=== PATIENT | female | born 1965 | race Caucasian/White ===

== ENCOUNTER → 2018-07-15 10:43 | Outpatient (CLI) | payer BC, SELFPAY ==
--- NOTE | 2018-07-15 10:45 | MR_ITS ---
MR lumbar spine wo con, MR 3-d myelogram/MRCP HISTORY: PT states low back pain and RT leg numbness from knee down. ITS.REASON: LOW BACK PAIN, RADICULOPATHY LUMBOSACRAL REGION ORDERING PHYSICIAN: Marlena Das PATIENT AGE: 53 years Comparison: None TECHNIQUE: Standard multiplanar multiecho sequences are performed without contrast. 3-D MIP and myelographic images are also rendered and reviewed FINDINGS: There is a transitional segment at the lumbosacral junction which is labeled as S1. The spinal cord ends at the L1-L2 level. There is normal alignment. There are minimal bulging disc at L1-L2, L2-L3, and L3-L4 without impingement. There is mild facet and ligamentum flavum hypertrophy at L3-L4. L4-L5 shows mild bulging disc along with facet and ligamentum flavum hypertrophy with moderate right and mild left foraminal narrowing. L5-S1: Mild concentric bulging disc with mild facet and ligamentum flavum hypertrophy with [id number] bilateral foraminal narrowing. There is minimal anterolisthesis of L5 on S1 of 2 to 3 mm. No canal stenosis or disc herniation evident. There is a small right renal cyst anteriorly at 12 mm. IMPRESSION: 1. Transitional segment at the lumbosacral junction labeled as S1. Please correlate with lateral spine film if any intervention is contemplated 2. Mild bulging disc at multiple levels. There is facet ligamentum flavum hypertrophy with moderate right and mild left foraminal narrowing at L4-L5 and moderate bilateral foraminal narrowing at L5-S1. 3. No disc herniation or canal stenosis
== END ==
PROVIDERS: PCP Nurse Practitioner Family; Visit Provider Nurse Practitioner Family
DX: M54.17 Radiculopathy, lumbosacral region (principal)
CPT/HCPCS: 72148; 76376

== ENCOUNTER → 2018-08-15 14:38 | Outpatient (CLI) | payer BC, SELFPAY ==
--- NOTE | 2018-08-15 14:44 | US_ITS ---
US soft tissue head and neck CLINICAL INDICATION: ITS.REASON: PALPABLE AREA LOWER NECK ORDERING PHYSICIAN: Marlena Das PATIENT AGE: 53 years Comparison: None FINDINGS: The parotid and submandibular glands have an unremarkable appearance. No obvious adenopathy or abnormal fluid collection. No soft tissue masses demonstrated. The area of palpable abnormality may very well represent a prominent sternoclavicular joint. This could be confirmed with CT clinically warranted. IMPRESSION: Unremarkable ultrasound soft tissue neck. Palpable abnormality may correspond to sternoclavicular joint and could be confirmed with CT if clinically warranted
--- NOTE | 2018-08-15 14:44 | MM_ITS ---
MM Dig screening mamm BI w/CAD ORDERING PHYSICIAN : Marlena Das PATIENT AGE: 53 years GENDER: Female COMPARISON: July 2016, 2016, June 2015 bilateral mammogram INDICATION: ITS.REASON: SCREENING. No hormones currently. Stopped -control pills 10 weeks ago.. No new complaints.. Family history breast cancer,.: Maternal cousin with breast cancer premenopausal; and paternal cousin postmenopausal TECHNIQUE: Standard CC and MLO images were obtained. R2 CAD reviewed. FINDINGS: Moderate scattered residual fibroglandular elements throughout both breast . Moderate density breast Breast bilaterally. No suspicious nor dominant mass; no suspicious calcifications in either breast. No significant new areas of concern were compared to previous studies.. There is some stable subtle areas of minimal nodularity bilaterally not of concern. The. Bilateral follow-up in one year recommended . IMPRESSION: ... Stable bilateral mammogram with no significant new findings. Follow-up one year recommended BI-RADS Category: 2 Benign Finding(s) RECOMMENDED FOLLOW-UP: 1YR 1 YEAR FOLLOW-UP (A letter has been sent to the patient regarding results of the study.)
== END ==
PROVIDERS: PCP Nurse Practitioner Family; Visit Provider Nurse Practitioner Family
DX: Z12.31 Encounter for screening mammogram for malignant neoplasm of breast (principal); R22.1 Localized swelling, mass and lump, neck
CPT/HCPCS: 76536; 77067

== ENCOUNTER → 2018-11-28 13:46 | Outpatient (CLI) | payer BC, SELFPAY ==
--- NOTE | 2018-11-28 14:02 | XR_ITS ---
XR knee LT 3V HISTORY: ITS.REASON: LT KNEE PAIN ORDERING PHYSICIAN: Santy Segura PATIENT AGE: 53 years COMPARISON: Left knee 03/01/2017 FINDINGS: No fracture or dislocation. No lytic or blastic change. Normal mineralization. There is mild narrowing of joint space medially with prominent spurring the medial tibial spine. There is mild narrowing of patellofemoral space with minimal spurring of the superior border of the patella. There is no definite suprapatellar bursal effusion. There has been slight interval progression of medial joint space narrowing since the previous left knee February 2017. . IMPRESSION: Mild degenerative change of the knee primarily involving medial joint compartment
== END ==
PROVIDERS: PCP Nurse Practitioner Family; Visit Provider Orthopaedic Surgery Adult Reconstructive Orthopaedic Surgery
DX: M25.562 Pain in left knee (principal)
CPT/HCPCS: 73562

== ENCOUNTER 2019-01-21 15:00 | Outpatient (RCR) | payer BC, SELFPAY | END 2019-02-17 10:52 | disposition home or self-care (01) | LOC: PT.CARL 15:00 | PROVIDERS: Visit Provider Orthopaedic Surgery Adult Reconstructive Orthopaedic Surgery | DX: M17.12 Unilateral primary osteoarthritis, left knee (principal) | CPT/HCPCS: 97010; 97014; 97033; 97110; 97163; G0283 ==

== ENCOUNTER 2019-04-09 13:00 | Outpatient (RCR) | payer BC, SELFPAY | END 2019-04-23 09:55 | disposition home or self-care (01) | LOC: PT.CARL 13:00 | PROVIDERS: PCP Nurse Practitioner Family; Visit Provider Orthopaedic Surgery Adult Reconstructive Orthopaedic Surgery | DX: M17.12 Unilateral primary osteoarthritis, left knee (principal) | CPT/HCPCS: 97010; 97014; 97110; 97116; 97163; G0283 ==

== ENCOUNTER → 2019-05-19 08:59 | Outpatient (POV) | payer BC, SELFPAY | PROVIDERS: Visit Provider Dermatology | DX: Z00.00 Encounter for general adult medical examination without abnormal findings (principal) ==

== ENCOUNTER → 2019-09-08 14:55 | Outpatient (CLI) | payer BC, SELFPAY ==
--- NOTE | 2019-09-08 14:58 | MM_ITS ---
PROCEDURE: MM DIG SCREENING MAMM BI W/CAD CLINICAL INDICATION: SCREENING There is a history of breast cancer patient's maternal cousin and paternal cousin, 1 before menopause the other after menopause COMPARISON: [facility] DIG MAMM-SCREEN [facility] from 07/13/2016 [facility] DIG MAMM-SCREEN [facility] W/CAD from 07/15/2017 [facility] MM Dig screening mamm BI w/CAD from 08/15/2018 TECHNIQUE: Standard CC and MLO images and 3D Tomosinthisis was obtained. R2 CAD reviewed. FINDINGS: Minimal scattered fibroglandular densities are seen throughout both breasts. There is no suspicious lesion and no suspicious microcalcifications. Tomy images were reviewed. IMPRESSION: Fibrofatty parenchyma with no suspicious lesions seen BI-RAD Category: 1 Negative FOLLOW-UP: 1YR 1 Year Follow-up (A letter has been sent to the patient regarding results of the study.) Dictated by: Dr. Farrukh Lim MD 09/11/2019 09:[address] Farrukh Lim MD in [place] 09/11/2019 09:05
== END ==
PROVIDERS: PCP Nurse Practitioner Family; Visit Provider Nurse Practitioner Family
DX: Z12.31 Encounter for screening mammogram for malignant neoplasm of breast (principal)
CPT/HCPCS: 77063; 77067

== ENCOUNTER → 2020-11-11 15:03 | Outpatient (CLI) | payer BC, SELFPAY ==
--- NOTE | 2020-11-11 15:09 | MM_ITS ---
PROCEDURE: MM DIG SCREENING MAMM BI W/CAD Digital Breast Tomosynthesis Included CLINICAL INDICATION: SCREENING There is a history of breast cancer in the patient's maternal cousin diagnosed before menopause and the patient's paternal cousin diagnosed after menopause.. COMPARISON: MG [facility] DIG MAMM-SCREEN [facility] W/CAD from 07/15/2017 MG [facility] MM Dig screening mamm BI w/CAD from 08/15/2018 MG MM DIG SCREENING MAMM BI W/CAD from 09/08/2019 TECHNIQUE: Standard CC and MLO images and 3D Tomosynthesis was obtained. R2 CAD reviewed. FINDINGS: Mild to moderate scattered fibroglandular densities are seen in both breasts and the findings are bilateral and symmetrical. There is no suspicious lesion in either breast and no suspicious microcalcifications. IMPRESSION: Fibrofatty parenchyma with no suspicious lesions seen BI-RAD Category: 1 Negative FOLLOW-UP: 1YR 1 Year Follow-up (A letter has been sent to the patient regarding results of the study.) Dictated by: Dr. Farrukh Lim MD 11/17/2020 16:16 Dr. Farrukh Lim MD in [place] 11/17/2020 16:16
== END ==
PROVIDERS: PCP Nurse Practitioner Family; Visit Provider Nurse Practitioner Family
DX: Z12.31 Encounter for screening mammogram for malignant neoplasm of breast (principal)
CPT/HCPCS: 77063; 77067

== ENCOUNTER → 2020-12-06 14:50 | Outpatient (POV) | payer BC, SELFPAY | PROVIDERS: Visit Provider Dermatology | DX: Z00.00 Encounter for general adult medical examination without abnormal findings (principal) ==

== ENCOUNTER → 2020-12-27 14:05 | Outpatient (CLI) | payer BC, SELFPAY ==
--- NOTE | 2020-12-27 14:16 | CA_ITS ---
APPROVED REPORT Left Lower Extremity Venous Study for DVT. Food And Beverage Controller: Kathy Whitmore RVT Indications Lower Extremity Pain: Left Lower Extremity Edema: Left EDEMA LT ANKLE/FOOT Vein Imaging CFV (L): compressive, spontaneous, phasic, augmentation FEM (L): compressive, spontaneous, phasic, augmentation POP (L): compressive, spontaneous, phasic, augmentation PTV (L): Compressible GSV (L): Compressible Peroneals (L):Compressible GAS (L): Compressible Findings Study suggests no evidence of DVT of the left lower extremity. Study suggests no evidence of SVT of the left lower extremity. Conclusion Study suggests no evidence of DVT of the left lower extremity. Study suggests no evidence of SVT of the left lower extremity. Electronically signed by : Meng Brown MD 12/27/2020 16:28:47
== END ==
PROVIDERS: PCP Nurse Practitioner Family; Visit Provider Nurse Practitioner Family
DX: M79.662 Pain in left lower leg (principal)
CPT/HCPCS: 93971

== ENCOUNTER 2021-06-04 03:56 | Emergency (ER) | payer BC, SELFPAY ==
[2021-06-04] VITALS (7 sets, daily range): BP systolic 107–133; BP diastolic 65–80; PULSE 84–148; RESP 12–18; TEMP 36.5–36.6; O2SAT 96–100; BMI 31.2
--- NOTE | 2021-06-04 03:59 | ECG_ITS ---
APPROVED REPORT Exam: Resting ECG HR:152 bpm ECG Measurements Heart Rate 152 AXES QRSd 90 QRS 41 QT 284 T -30 QTc 451 Conclusion Atrial fibrillation with rapid ventricular response Low voltage QRS ST & T wave abnormality, consider inferior ischemia or digitalis effect Abnormal ECG Electronically signed by : Luis Chirinos MD 06/04/2021 20:30:22
--- NOTE | 2021-06-04 04:03 | XR_ITS ---
PROCEDURE INFORMATION: Exam: XR Chest Exam date and time: 06/04/2021 4:03 AM Age: 56 years old Clinical indication: Other: Palpatations; Additional info: Palpitations TECHNIQUE: Imaging protocol: XR of the chest. Views: 1 view. COMPARISON: CR CXR CHEST(2 VIEWS-NOT PORTABLE) 09/10/2016 11:43 AM FINDINGS: Lungs: Unremarkable. No consolidation. Pleural spaces: Unremarkable. No pleural effusion. No pneumothorax. Heart/Mediastinum: Unremarkable. No cardiomegaly. Bones/joints: There are degenerative changes of the thoracic spine. IMPRESSION: No evidence of acute intrathoracic disease. No interval change since 09/10/2016.
[2021-06-04 04:10] LABS: Basophils # 0.1 K/mm3 (0-0.2); Basophils % 0.7 % (0.1-2.0); Eosinophils # 0.1 K/mm3 (0.0-0.4); Eosinophils % 1.3 % (0.1-12.0); Hemoglobin 12.1 g/dL (12.2-16.2); Lymphocytes # 2.3 K/mm3 (0.7-4.5); Lymphocytes % 26.4 % (10-50); Mean Corpuscular HGB Conc 30.2 g/dL (31.8-35.4); Mean Corpuscular Hemoglobin 30.2 pg (27.0-31.2); Mean Corpuscular Volume 99.9 fl (81-99); Mean Platelet Volume 8.2 fl (7.4-10.4); Monocytes # 0.3 K/mm3 (0.1-1.0); Neutrophils # 5.8 K/mm3 (1.8-7.8); Neutrophils % 67.5 % (37.0-80.0); Platelet Count 297 K/mm3 (142-424); Red Cell Distribution Width 13.2 % (11.5-17.5); White Blood Count 8.5 K/mm3 (4.8-10.8)
--- NOTE | 2021-06-04 04:15 | HMH.EDGENADL ---
ED Disposition Clinical Impression: Atrial fibrillation with RVR, Atrial fibrillation status post cardioversion Disposition: Home, Self-Care Condition on Discharge: Good Instructions: DI for Atrial Fibrillation, Rivaroxaban Additional Instructions: You have been evaluated for lightheaded and nausea, diagnosed with atrial fibrillation with rapid ventricular response. You have been cardioverted to sinus rhythm. It is very important that you take daily anticoagulation medication, Xarelto. Follow-up with your primary care doctor within 24 to 48 hours. Follow-up with cardiology, Dr. Sosa. Return to the emergency department for any new or worsening symptoms, palpitations, shortness of breath, chest pain, other concerns. Prescriptions: Rivaroxaban [Xarelto 15mg tablet] 15 mg PO DAILYP #30 tab Transmission Status: Sent to [facility] Referrals: Marlena Das [Primary Care Provider] - Nikunj Sosa MD [Staff Physician] - Time of Disposition: 06:10 - Critical Care Critical Care Time: Yes Attestation: On , the high probability of a clinically significant, sudden or life threatening deterioration of the following system(s) required my full and direct attention, intervention and personal management. The time I documented below is in addition to time spent performing reported procedures but includes the following listed in this critical care notation. Total Critical Care Time: 35 Vital system(s) involved:: Circulatory Failure My critical care processes included: Assessment & monitoring of V/S, Initial and Re-exams, Data Review/Interpretation, Coordinating Care, Medication Orders and management, Documentation Medical Decision Making - Medical Records Medical records reviewed: Yes: I reviewed the patient's medical records. - Kevon Inquiry Pt receiving controlled substance: No Vital Signs: 06/04/21 03:55 06/04/21 04:48 06/04/21 04:54 Temperature 97.7 F Temperature Source Oral Pulse Rate 148 H 98 H Pulse Rate [Right Radial] 115 H Respiratory Rate 18 14 12 Blood Pressure 107/75 L 133/80 Blood Pressure [Right Arm] 122/71 Blood Pressure Mean [Right Arm] 88 Blood Pressure Source Automatic Cuff Automatic Cuff Blood Pressure Source [Right Arm] Automatic Cuff Blood Pressure Position Sitting Sitting Blood Pressure Position [Right Arm] Sitting 02 Sat by Pulse Oximetry 99 100 96 Oxygen Delivery Method Room Air Nasal Cannula Nasal Cannula Oxygen Flow Rate (LPM) 2 2 06/04/21 05:15 Temperature Temperature Source Pulse Rate 84 Pulse Rate [Right Radial] Respiratory Rate 12 Blood Pressure 117/65 Blood Pressure [Right Arm] Blood Pressure Mean [Right Arm] Blood Pressure Source Automatic Cuff Blood Pressure Source [Right Arm] Blood Pressure Position Sitting Blood Pressure Position [Right Arm] 02 Sat by Pulse Oximetry 99 Oxygen Delivery Method Nasal Cannula Oxygen Flow Rate (LPM) 2 - Lab Data Lab Results 06/04/21 04:04: WBC 8.5, RBC 4.00 L, Hgb 12.1 L, Hct 40.0, MCV 99.9 H, MCH 30.2, MCHC 30.2 L, RDW 13.2, Plt Count 297, MPV 8.2, Neut % (Auto) 67.5, Lymph % (Auto) 26.4, [place] % (Auto) 4.0, Eos % (Auto) 1.3, Baso % (Auto) 0.7, Neut # (Auto) 5.8, Lymph # (Auto) 2.3, [place] # (Auto) 0.3, Eos # (Auto) 0.1, Baso # (Auto) 0.1 06/04/21 04:04: Sodium 141, Potassium 3.6, Chloride 109 H, Carbon Dioxide 25, Anion Gap 10.6, BUN 16, Creatinine 0.70, Estimated Creat Clear 141, Estimated GFR 86, Est GFR ( Amer) 104, Glucose 166 H, Calcium 8.7, Phosphorus 2.2 L, Magnesium 1.8, Total Bilirubin 0.2, AST 38 H, ALT 28, Alkaline Phosphatase 81, Troponin I < 0.01, Total Protein 6.9, Albumin 4.0, Globulin 2.9, Albumin/Globulin Ratio 1.4, TSH 0.92 06/04/21 04:04: PT 10.8, INR 0.95, APTT 22.8 Result diagrams: 06/04/21 04:04 06/04/21 04:04 Orders (Tests/Meds): ED MEDICATIONS Generic Name Dose Route Start Last Admin Trade Name Freq PRN Reason Stop Dose Admin Etomidate 10 mg 06/04/21 04:30
[2021-06-04 04:22] LABS: Alanine Aminotransferase 28 U/L (12-78); Albumin/Globulin Ratio 1.4 (1.1-1.8); Alkaline Phosphatase 81 U/L (38-126); Anion Gap 10.6 mEq/L (5-15); Aspartate Amino Transferase 38 U/L (14-36); Bilirubin,Total 0.2 mg/dl (0.2-1.3); Blood Urea Nitrogen 16 mg/dl (7-17); Calcium 8.7 mg/dl (8.4-10.2); Carbon Dioxide 25 mmol/L (22.0-30.0); Chloride 109 mmol/L (98-107); Creatinine Clearance Estimated 141 mL/min (50-200); Estimated Glomerular Filt Rate 86 ml/min (>60); GFR (African American) 104 ML/MIN (>60); Globulin 2.9 g/dL (1.3-3.2); Glucose 166 mg/dl (74-100); Magnesium 1.8 mg/dl (1.6-2.3); Phosphorous 2.2 mg/dl (2.5-4.5); Potassium 3.6 mmoL/L (3.5-5.1); Sodium 141 mmol/L (136-145); Total Protein,Serum 6.9 g/dl (6.3-8.2)
[2021-06-04 04:42] LABS: Troponin I < 0.01 ng/ml (0.00-0.034)
[2021-06-04 04:52] LABS: Thyroid Stimulating Hormone 0.92 uIU/mL (0.465-4.68)
--- NOTE | 2021-06-04 05:00 | PC.NURSE ---
0445- MD at bedside explaining procedure of cardioversion. Pt and agreeable and consent singed and placed on chart. Mary Worley E.Lyons, S.Mitchell and this RN at bedside as well. 0448- Pt placed on zoll and end-tidal CO2 monitor. Rhythm synced and time out performed. Vital BP-107/75 HR-148 RR-14 O2-100% 2LNC 0450- 25mcg Fentanyl IVP given 0451- 10mg Etomidate IVP given 0452- Sync and charged to 120j. All clear called and pt cardioverted. Pt converted to NSR. Verbal orders for repeat EKG from MD January 0554- BP-133/80 HR-98 RR-12 O2-96% Pt tolerated procedure well. 0459- Repeat EKG given to showing NSR. Pt alert and able to answer questions appropriately. She states she feels fine . 8365- at bedside
[2021-06-04 05:08] LABS: Activated Partial Thrombo Time 22.8 seconds (22.8-30.6); INR 0.95 (0.9-1.1); Prothrombin Time 10.8 seconds (10.1-12.5)
[2021-06-04 07:55] LABS: Troponin I < 0.01 ng/ml (0.00-0.034)
== END 2021-06-04 08:07 | disposition home or self-care (01) ==
PROVIDERS: Emergency Provider Emergency Medicine; PCP Nurse Practitioner Family
DX: I48.0 Paroxysmal atrial fibrillation (principal)
CPT/HCPCS: 71045; 80053; 83735; 84100; 84443; 84484; 85025; 85610; 85730; 93005; 96365; 96375; 96376; 99284; J2405

== ENCOUNTER 2021-06-04 14:05 | Emergency (ER) | payer BC, SELFPAY ==
--- NOTE | 2021-06-04 04:59 | ECG_ITS ---
APPROVED REPORT Exam: Resting ECG HR:86 bpm ECG Measurements Heart Rate 86 AXES HI 192 P 53 QRSd 98 QRS 36 QT 394 T 35 QTc 471 Conclusion Normal sinus rhythm Normal ECG Electronically signed by : Luis Chirinos MD 06/04/2021 20:30:14
[2021-06-04 14:06] VITALS: BP 136/72; PULSE 78; RESP 18; TEMP 37; O2SAT 95; BMI 31.2
--- NOTE | 2021-06-04 17:11 | HMH.EDGENADL ---
ED Disposition Clinical Impression: Drug-induced nausea and vomiting Disposition: Home, Self-Care Condition on Discharge: Good Instructions: DI for Nausea -- Adult, DI for Nausea -- Child, DI for Diarrhea and Traveler's Diarrhea -- Adult, DI for Diarrhea and Traveler's Diarrhea -- Child Additional Instructions: You were evaluated in the emergency department today for nausea and vomiting after medical procedure this morning, and there is no need for further emergent evaluation at this time. Exact cause of symptoms unclear but is likely due to adverse effect of medication. Use meclizine and Zofran as directed, and follow-up with your primary care physician in the next 1 to 2 days for monitoring of any persistent symptoms and coordination of ongoing care needs. Return to the emergency department with hesitation with any new or worsening symptoms. Prescriptions: Meclizine HCl [Meclizine 25mg Tab] 25 mg PO BID PRN #20 tab PRN Reason: Dizziness Transmission Status: Pending to [facility] Ondansetron [Zofran 4mg ODT] 4 mg PO TIDP PRN #12 tab PRN Reason: Nausea Transmission Status: Pending to [facility] Referrals: Marlena Das [Primary Care Provider] - - Critical Care Critical Care Time: No Attestation: On 06/04/21, the high probability of a clinically significant, sudden or life threatening deterioration of the following system(s) required my full and direct attention, intervention and personal management. The time I documented below is in addition to time spent performing reported procedures but includes the following listed in this critical care notation. Medical Decision Making - Kevon Inquiry Pt receiving controlled substance: No Vital Signs: 06/04/21 14:06 Temperature 98.6 F Temperature Source Oral Pulse Rate [Radial] 78 Respiratory Rate 18 Blood Pressure [Right Arm] 136/72 Blood Pressure Mean [Right Arm] 93 02 Sat by Pulse Oximetry 95 Oxygen Delivery Method Room Air Orders (Tests/Meds): ED MEDICATIONS Discontinued Medications Generic Name Dose Route Start Last Admin Trade Name Freq PRN Reason Stop Dose Admin Sodium Chloride 1,000 mls @ 999 mls/hr 06/04/21 14:45 06/04/21 14:37 Sod Chlor 0.9% 1000ml Bag IV 06/04/21 15:45 999 mls/hr .Q1H1M CRIS Administration Meclizine HCl 25 mg 06/04/21 15:02 06/04/21 15:03 Meclizine 25mg Tablet PO 06/04/21 15:03 25 mg ONCE ONE Administration Ondansetron HCl 4 mg 06/04/21 14:31 06/04/21 14:35 Ondansetron 4mg/2ml Vial IV 06/04/21 14:32 4 mg ONCE ONE Administration Medical Decision Narrative: In summary, the patient is a 56-year-old female with recently cardioverted supraventricular tachycardia this morning who presents for evaluation of dizziness and nausea and vomiting. She is in no acute distress, afebrile and hemodynamically stable, nontoxic in appearance. Physical exam demonstrates comfortable appearing female with normal cardiopulmonary exam, soft nontender abdomen, normal extremities and, grossly normal neurologic exam with her made her physical exam within normal limits. Differential diagnosis includes but not limited to peripheral vertigo, electrolyte abnormality, adverse effect of medication. Given normal exam, normal vital signs, and temporal association with sedative medication administered this morning, feel the most likely cause of symptoms adverse effect of medication. Will administer IV fluids, additional dose of Zofran and meclizine and reassess clinically. Reassessment: Patient continues to be in no acute distress and hemodynamically stable. Symptoms have resolved since received medication. She is ambulating tolerated oral intake in the emergency department that issue. It was explained her the most likely cause of symptoms adverse effect of medication or other cause of peripheral vertigo. Will discharge home with prescription for meclizine and Zofran and recommendations for cardiology foll
[2021-06-04 17:39] VITALS: BP 136/72; PULSE 78; RESP 18; TEMP 36.7; O2SAT 95
== END 2021-06-04 17:48 | disposition home or self-care (01) ==
PROVIDERS: Emergency Provider Student in an Organized Health Care Education/Training Program; PCP Nurse Practitioner Family
DX: R11.2 Nausea with vomiting, unspecified (principal); R42 Dizziness and giddiness; I48.0 Paroxysmal atrial fibrillation
CPT/HCPCS: 93005; 96365; 96375; 99281; J2405

== ENCOUNTER → 2021-11-22 15:12 | Outpatient (CLI) | payer BC, SELFPAY ==
--- NOTE | 2021-11-22 15:14 | MM_ITS ---
PROCEDURE INFORMATION: Exam: MG Bilateral Screening 3D Mammography Exam date and time: 11/22/2021 3:10 PM Age: 56 years old Clinical indication: Screening examination. A cousin had breast cancer. TECHNIQUE: Imaging protocol: Bilateral Screening tomosynthesis and 2D mammography including computer-aided detection (CAD) when performed. COMPARISON: 1. MG MM DIG SCREENING MAMM BI W/CAD 11/11/2020 3:33 PM 2. MG MM DIG SCREENING MAMM BI W/CAD 09/08/2019 3:01 PM 3. MG [facility] MM Dig screening mamm BI w/CAD 08/15/2018 3:43 PM 4. MG [facility] DIG MAMM-SCREEN [facility] W/CAD 07/15/2017 3:57 PM FINDINGS: MAMMOGRAPHY: Breast composition: The breast tissue is composed of scattered areas of fibroglandular density. Mass: No suspicious mass. Architectural distortion: None. Calcifications: No suspicious calcifications. Asymmetric density: None. Skin thickening: None. Axillary adenopathy: None. IMPRESSION: No mammographic evidence of malignancy. Annual screening is recommended unless otherwise clinically indicated. ASSESSMENT: BI-RADS Category 1: Negative
== END ==
PROVIDERS: PCP Nurse Practitioner Family; Visit Provider Nurse Practitioner Family
DX: Z12.31 Encounter for screening mammogram for malignant neoplasm of breast (principal)
CPT/HCPCS: 77063; 77067

== ENCOUNTER → 2022-03-10 11:28 | Outpatient (CLI) | payer BC, SELFPAY | PROVIDERS: PCP Nurse Practitioner Family; Visit Provider Surgery | DX: Z01.812 Encounter for preprocedural laboratory examination (principal); Z20.822 Contact with and (suspected) exposure to COVID-19; Z12.11 Encounter for screening for malignant neoplasm of colon; Z86.010 Personal history of colon polyps | CPT/HCPCS: C9803; U0003; U0005 ==

== ENCOUNTER 2022-03-13 06:15 | Day surgery (SDC) | payer BC, SELFPAY ==
[2022-03-09 09:59] VITALS: BMI 37.6
[2022-03-13 06:33] VITALS: BP 139/70; PULSE 60; RESP 18; TEMP 36.8; O2SAT 97
--- NOTE | 2022-03-13 06:57 | HMH.SCOPE ---
- Procedure: Date: 03/13/22 Patient Date of :: 1965 Procedure Performed:: Colonoscopy with polypectomy Indications:: History of colon polyps. The patient is status post colonoscopy in 2014 at which time a sessile cecal polyp was excised and found to be adenomatous. In July 2016 a complex periappendiceal adenoma was excised. Moderate spasticity and tortuosity noted. Her last colonoscopy in February 2018 revealed scattered diverticulosis and benign polypoid tissue. Performing Provider:: Luke Pate MD Referring Provider:: . Sedation:: Monitored anesthesia care Procedure:: After informed consent was obtained the patient was taken to the endoscopy suite. Sedation ensued after the patient was transferred to the left lateral decubitus position. Pulse, blood pressure, and oxygen saturation were monitored throughout the procedure. Digital rectal exam revealed no significant abnormality. The colonoscope was placed in position. The entire colon was evaluated. The colonoscope was carefully removed and the patient was transferred to recovery in stable condition. Please see findings and specimens below for detail. Findings:: Bowel preparation fair to moderate Moderate tortuosity and spasticity Scattered diverticulosis Adjacent periappendiceal polyps Specimens:: Adjacent periappendiceal polyps (cold snare) Recommendations:: Timing of repeat colonoscopy is pending pathology but will likely be between 3-5 years. Complications:: No immediate Estimated blood obtained (mL): 1
--- NOTE | 2022-03-13 07:04 | P.PN_ITS ---
[facility] Anesthesia Checklist - Patient Identification Patient Identification: Arm Band - Structural Data Admitted From: Home Planned Operative Procedure/s: Colonoscopy Consent for Planned Operative Procedure(s) Verified: Yes - NPO Status Verified Time NPO: 05:30 (Prep) - Airway Assessment C-Spine Mobility Assessed: Yes TMJ Mobility Assessed: Yes Dentition: Good Dentition - Neurological Assessment Level of Consciousness: Awake Hx Seizures: No Numbness or tingling in extremities: No - Anesthesia Plan Anesthesia Risk discussed: Yes Anesthesia Plan: Verified ASA Class: II Anesthesia Type: MAC [facility] History I have reviewed the patient's past medical history: Yes Medical History: Reports:: Atrial Fibrillation, Hyperlipidemia Denies:: Cancer, Diabetes Mellitus Type 1, Diabetes Mellitus Type 2, Internal Pacemaker, Lung Disease, MRSA, Seizures *Have you ever received a pneumonia vaccine?: No *Have you received a flu vaccine this season?: Yes Anesthesia experience/problems:: None Other Surgeries: Yes: No Previous Surgery, Colonoscopy. No: Pacemaker Amputation: No Fractures: No - *Social History Last grade of school completed: Advanced degree Smoking Status: Never smoker Alcohol Intake: never Alcohol Intake Frequency:: holidays/special occasions only Substance Use Type: denies use *Occupational Status:: employed Housing: house Household Members: spouse *Travel in the last 8 weeks: None Family Hx:: Cancer
[2022-03-13 07:29] VITALS: O2SAT 97
[2022-03-13 08:05] VITALS: BP 119/70; PULSE 79; RESP 16; TEMP 36.4; O2SAT 100
[2022-03-13 08:15] VITALS: BP 123/91; PULSE 78; RESP 16; O2SAT 99
[2022-03-13 08:25] VITALS: BP 132/91; PULSE 58; RESP 16; O2SAT 99
[2022-03-13 08:35] VITALS: BP 141/82; PULSE 55; RESP 16; O2SAT 100
== END 2022-03-13 08:35 | disposition home or self-care (01) ==
LOC: OUTP 06:17
PROVIDERS: PCP Nurse Practitioner Family; Visit Provider Surgery
PROC: 0DJD8ZZ Inspection of Lower Intestinal Tract, Via Natural or Artificial Opening Endoscopic (ICD-10-PCS; CPT 45385; principal; 2022-03-13 07:30)
DX: Z12.11 Encounter for screening for malignant neoplasm of colon (principal); K63.5 Polyp of colon; Z86.010 Personal history of colon polyps; Z79.899 Other long term (current) drug therapy
CPT/HCPCS: 45385; J2405; J2704

== ENCOUNTER 2022-09-30 18:21 | Observation (INO) | payer BC, SELFPAY ==
[2022-09-30] VITALS (14 sets, daily range): BP systolic 0–121; BP diastolic 0–71; PULSE 80–166; RESP 13–22; TEMP 36.7–39; O2SAT 95–99; BMI 34.2; BMI 34.4
--- NOTE | 2022-09-30 18:31 | CT_ITS ---
PROCEDURE INFORMATION: Exam: CT Head Without Contrast Exam date and time: 09/30/2022 6:35 PM Age: 57 years old Clinical indication: Stroke-like symptoms; Speech disturbance; Additional info: Slurred speach TECHNIQUE: Imaging protocol: Computed tomography of the head without contrast. Radiation optimization: All CT scans at this facility use at least one of these dose optimization techniques: automated exposure control; mA and/or kV adjustment per patient size (includes targeted exams where dose is matched to clinical indication); or iterative reconstruction. Other protocol: This patient has received 0 known CTs and 0 known cardiac nuclear medicine studies in the 12 months prior to the current study. Other technique: STROKE PROTOCOL was implemented. COMPARISON: [facility] soft tissue head and neck 08/15/2018 2:49 PM FINDINGS: Brain: Normal. No hemorrhage. Unremarkable white matter. No mass effect. Cerebral ventricles: No ventriculomegaly. Paranasal sinuses: Mild paranasal sinus disease. Mastoid air cells: Visualized mastoid air cells are well aerated. Bones/joints: Unremarkable. No acute fracture. Soft tissues: Unremarkable. IMPRESSION: No acute intracranial abnormality. ASSESSMENT: ASPECTS (Flatgap Stroke Program Early CT Score) is 10.
--- NOTE | 2022-09-30 18:31 | ECG_ITS ---
APPROVED REPORT Exam: Resting ECG HR:155 bpm ECG Measurements Heart Rate 155 AXES QRSd 98 QRS 97 QT 219 T -16 QTc 306 Conclusion ATRIAL FIBRILLATION WITH RAPID VENTRICULAR RESPONSE BORDERLINE RIGHT AXIS DEVIATION [QRS AXIS > 90] LOW QRS VOLTAGE IN PRECORDIAL LEADS [QRS DEFLECTION < 1.0 mV IN CHEST LEADS] NONSPECIFIC ST & T-WAVE ABNORMALITY CRITICAL TEST RESULT UNCONFIRMED REPORT Electronically signed by : Luis Chirinos MD 10/01/2022 18:53:02
--- NOTE | 2022-09-30 18:48 | ECG_ITS ---
APPROVED REPORT Exam: Resting ECG HR:102 bpm ECG Measurements Heart Rate 102 AXES HI 158 P 59 QRSd 103 QRS 55 QT 292 T 45 QTc 351 Conclusion SINUS TACHYCARDIA ABNORMAL RHYTHM ECG UNCONFIRMED REPORT Electronically signed by : Luis Chirinos MD 10/01/2022 18:52:56
--- NOTE | 2022-09-30 18:50 | PC.NURSE ---
Instructed patient in performing guided vagal manuever with cardiac telemetry monitoring in place and patient's rhythm converted from AF w RVR to sinus tach, pt reports feeling incrementally more relaxed
--- NOTE | 2022-09-30 18:54 | PC.NURSE ---
Alfa at the bedside with pt and was able to convert pt to ST using vagal maneuvers
--- NOTE | 2022-09-30 19:13 | XR_ITS ---
PROCEDURE INFORMATION: Exam: XR Chest Exam date and time: 09/30/2022 7:30 PM Age: 57 years old Clinical indication: Shortness of breath; Additional info: SOA TECHNIQUE: Imaging protocol: Radiologic exam of the chest. Views: 1 view. COMPARISON: CR XR CHEST PORTABLE 06/04/2021 4:10 AM FINDINGS: Tubes, catheters and devices: There are overlying leads/electrodes. Lungs: No consolidation. Pleural spaces: Unremarkable. No pleural effusion. No pneumothorax. Heart/Mediastinum: Cardiac silhouette appears within normal limits for portable technique. Bones/joints: Osteopenia. Degenerative change involving the shoulders and spine. IMPRESSION: No acute cardiopulmonary process.
[2022-09-30 19:21] LABS: Basophils # 0.1 K/mm3 (0-0.2); Basophils % 0.5 % (0.1-2.0); Eosinophils % 0.1 % (0.1-12.0); Hemoglobin 13.1 g/dL (12.2-16.2); Lymphocytes # 2.2 K/mm3 (0.7-4.5); Lymphocytes % 11.9 % (10-50); Mean Corpuscular Hemoglobin 29.6 pg (27.0-31.2); Mean Corpuscular Volume 92.5 fl (81-99); Mean Platelet Volume 8.3 fl (7.4-10.4); Monocytes % 5.3 % (1.7-9.3); Neutrophils # 14.9 K/mm3 (1.8-7.8); Neutrophils % 82.2 % (37.0-80.0); Platelet Count 260 K/mm3 (142-424); Red Blood Count 4.43 M/mm3 (4.20-5.40); Red Cell Distribution Width 13.6 % (11.5-17.5); White Blood Count 18.1 K/mm3 (4.8-10.8)
[2022-09-30 19:28] LABS: Activated Partial Thrombo Time 29.4 seconds (22.8-30.6); INR 1.06 (0.9-1.1); Prothrombin Time 11.4 seconds (10.1-12.5)
--- NOTE | 2022-09-30 19:30 | PC.NURSE ---
Rounded on patient and family at this time. updated on POC. No new needs at this time
[2022-09-30 19:33] LABS: MANUAL DIFFERENTIAL MANUAL DIFFERENTIAL (MANUAL DIFF)
--- NOTE | 2022-09-30 19:33 | PC.NURSE ---
LUIS MANUEL ODEN at discussing POC
--- NOTE | 2022-09-30 19:40 | CT_ITS ---
PROCEDURE INFORMATION: Exam: CTA Neck With Contrast Exam date and time: 09/30/2022 8:22 PM Age: 57 years old Clinical indication: Stroke-like symptoms; Speech disturbance; Additional info: TIA TECHNIQUE: Imaging protocol: Computed tomographic angiography of the neck with contrast. 3D rendering (Not supervised by radiologist): MIP and/or 3D reconstructed images were created by the technologist. Radiation optimization: All CT scans at this facility use at least one of these dose optimization techniques: automated exposure control; mA and/or kV adjustment per patient size (includes targeted exams where dose is matched to clinical indication); or iterative reconstruction. Contrast material: ISOVUE; Contrast volume: 100 ml; Contrast route: INTRAVENOUS (IV); Other protocol: This patient has received 2 known CTs and 0 known cardiac nuclear medicine studies in the 12 months prior to the current study. COMPARISON: CT HEAD/BRAIN WO CON 09/30/2022 6:35 PM FINDINGS: Limitations: Limited by artifact arising from metallic dental hardware/dental amalgam. Right common carotid artery: No stenosis. No dissection or occlusion. Right internal carotid artery: No stenosis of the extracranial segment. No dissection or occlusion. Right external carotid artery: No occlusion or stenosis of the origin. Left common carotid artery: No stenosis. No dissection or occlusion. Left internal carotid artery: No stenosis of the extracranial segment. No dissection or occlusion. Left external carotid artery: No occlusion or stenosis of the origin. Right vertebral artery: No stenosis. No dissection or occlusion. Left vertebral artery: Left vertebral artery is dominant. Aorta: Aortic calcification. Soft tissues: Normal. No significant soft tissue swelling. Bones/joints: There are degenerative changes involving the spine. IMPRESSION: No hemodynamically significant stenosis. REFERENCES: NASCET CRITERIA. The degree of stenosis in the cervical segment of the internal carotid artery is based on NASCET criteria. Normal is no stenosis. Mild is less than 50% stenosis. Moderate is 50-69% stenosis. Severe is 70% to 99% stenosis. Total occlusion is no detectable patent lumen.
--- NOTE | 2022-09-30 19:40 | CT_ITS ---
PROCEDURE INFORMATION: Exam: CTA Head With Contrast, Arteriography Exam date and time: 09/30/2022 8:22 PM Age: 57 years old Clinical indication: Stroke-like symptoms; Speech disturbance; Additional info: TIA TECHNIQUE: Imaging protocol: Computed tomographic angiography of the head with contrast. Exam focused on the arteries. 3D rendering (Not supervised by radiologist): MIP and/or 3D reconstructed images were created by the technologist. Radiation optimization: All CT scans at this facility use at least one of these dose optimization techniques: automated exposure control; mA and/or kV adjustment per patient size (includes targeted exams where dose is matched to clinical indication); or iterative reconstruction. Contrast material: ISOVUE; Contrast volume: 100 ml; Contrast route: INTRAVENOUS (IV); Other protocol: This patient has received 2 known CTs and 0 known cardiac nuclear medicine studies in the 12 months prior to the current study. COMPARISON: CT HEAD/BRAIN WO CON 09/30/2022 6:35 PM FINDINGS: ANTERIOR CIRCULATION: Right internal carotid artery: Intracranial segment is patent with no significant stenosis. No aneurysm. Right middle cerebral artery: No occlusion or significant stenosis. No aneurysm. Right anterior cerebral artery: No occlusion or significant stenosis. No aneurysm. Left internal carotid artery: Intracranial segment is patent with no significant stenosis. No aneurysm. Left middle cerebral artery: No occlusion or significant stenosis. No aneurysm. Left anterior cerebral artery: No occlusion or significant stenosis. No aneurysm. POSTERIOR CIRCULATION: Right vertebral artery: No occlusion or significant stenosis. No aneurysm. Left vertebral artery: Left vertebral artery is dominant. Basilar artery: No occlusion or significant stenosis. No aneurysm. Right posterior cerebral artery: See Right posterior communicating artery finding. Left posterior cerebral artery: No occlusion or significant stenosis. No aneurysm. Right posterior communicating artery: Patent right posterior communicating artery with hypoplastic right P1 segment. Brain: No definite mass, mass effect, or midline shift. Cerebral ventricles: No ventriculomegaly. Bones/joints: Unremarkable. No acute fracture. Soft tissues: Unremarkable. IMPRESSION: No hemodynamically significant stenosis or large vessel occlusion.
--- NOTE | 2022-09-30 19:42 | PC.NURSE ---
while doing pts covid/flu swab family reports pt has been c/o sore throat. Notified ER , pt swabbed for strep and send to lab with covid swab
--- NOTE | 2022-09-30 19:43 | HMH.EDGENADL ---
Discharge Plan Disposition Patient Disposition: Admitted as Observation Condition: Good Chief Complaint: Neuro Symptoms/Deficit Prescriptions Prescriptions: No Action pravastatin 20 MG tablet 20 mg PO HS Referrals Follow up/Referrals: Marlena Das [Primary Care Provider] - See instructions Clinical Impressions Clinical Impression: Transient ischemic attack, Atrial fibrillation with rapid ventricular response Discharge ED Provider: Joey Styles General Adult HPI General Chief complaint: Neuro Symptoms/Deficit Stated complaint: alt Time Seen by Provider: 09/30/22 19:50 Mode of Arrival: Ambulatory Source of Information: Patient and Spouse Limitations: No Limitations Description of Symptoms (Recalled from ER Triage Doc. by RN): pt to ed c/o altered mental status. pt states her last known normal was 12pm yesterday. states he got home around 10pm last night and she was in bed. states she seemed to have slurred speech but reports he assumed it was because she had just woken up. reports pt was altered this morning and ate her breakfast with her finger instead of her silverware. says symptoms of slurred speech have resolved but states pt has remained altered. pt denies fall or pain. pt states she feels lightheaded. History of Present Illness HPI narrative: Patient presents to the emergency department with altered mental status, prolonged speech, confusion and generalized malaise. The patient's states that she woke up this morning and started having altered mental status and speech changes. The patient has a history of atrial fibrillation which she was cardioverted in the emergency department in the past. She denies any fever, chills, cough, congestion, nausea or vomiting. Denies any numbness, tingling or weakness in any of her arms or legs. Patient states that her symptoms have completely resolved and her agrees. Related Data Home Medications Medication Instructions Recorded Confirmed pravastatin 20 mg tablet 20 mg PO HS Cholesterol 06/04/21 03/13/22 Allergies Allergy/AdvReac Type Severity Reaction Status Date / Time No Known Drug Allergies Allergy Mild Verified 03/13/22 06:29 [NKDA] [facility] Disclaimer: The information contained in this section may have been updated after the patient was seen, as this information can be updated by other users. Social History Smoking Status: Never smoker second hand exposure: No alcohol intake: never substance use type: denies use current occupational status: employed Travel in the last 8 weeks: None household members: spouse housing: house caffeine: Yes ROS Obtained: Yes All systems reviewed & no additional complaints except as documented Constitutional Constitutional: Reports system reviewed and no additional complaints, except as documented and Reports malaise Neurologic Neurologic: Reports abnormal speech Physical Exam General General appearance: alert and in no apparent distress Head Head exam: atraumatic and normocephalic Eye Eye exam: Present normal appearance, PERRL and EOMI Chest Chest inspection: Present normal inspection Respiratory Respiratory exam: Present normal lung sounds bilaterally and respiratory distress Cardiovascular Cardiovascular exam: Present tachycardia, irregular rhythm and normal heart sounds Abdominal Exam Abdominal exam: Present soft and normal bowel sounds Extremities Exam Extremities exam: Present normal inspection and full ROM Neurological Exam Neurological exam: Present alert, oriented X3, CN II-XII intact and motor sensory deficit Psychiatric Psychiatric exam: Present normal affect and normal mood Skin Skin exam: Present warm Medical Decision Making Medical Records Medical records reviewed: Yes I reviewed the patient's medical records. Kevon Inquiry Pt receiving controlled substa
--- NOTE | 2022-09-30 19:43 | PC.NURSE ---
notified warehouse director of admission, [place]ter[place] states hospitalist just called and stated to her wants pt CTA results back prior to pt going to admitted room. ER MD reports has already entered CTA orders
[2022-09-30 19:49] LABS: Coronavirus 19, PCR Not Detected (NotDetected); Influenza A, PCR Not Detected (NotDetected); Influenza B, PCR Not Detected (NotDetected)
[2022-09-30 19:51] LABS: Lymphocytes % 16 % (10-50); Monocytes % 4 % (2-9); Neutrophils % 79 % (42-76); Platelet Estimate Normal; RBC Morphology Normal; Total Cells Counted 100
--- NOTE | 2022-09-30 20:10 | PC.NURSE ---
rad notified of CTA orders, states are waiting on cmp results
[2022-09-30 20:14] LABS: Alanine Aminotransferase 33 U/L (12-78); Albumin Level 4.1 g/dl (3.5-5.0); Albumin/Globulin Ratio 1.2 (1.1-1.8); Alkaline Phosphatase 75 U/L (38-126); Anion Gap 6.7 mEq/L (5-15); Aspartate Amino Transferase 41 U/L (14-36); Bilirubin,Total 0.6 mg/dl (0.2-1.3); Blood Urea Nitrogen 11 mg/dl (7-17); Calcium 8.6 mg/dl (8.4-10.2); Carbon Dioxide 29 mmol/L (22.0-30.0); Chloride 106 mmol/L (98-107); Creatinine Clearance Estimated 152 mL/min (50-200); Estimated Glomerular Filt Rate 86 ml/min (>60); GFR (African American) 104 ML/MIN (>60); Globulin 3.4 g/dL (1.3-3.2); Glucose 136 mg/dl (74-100); Potassium 3.7 mmoL/L (3.5-5.1); Sodium 138 mmol/L (136-145); Total Protein,Serum 7.5 g/dl (6.3-8.2)
[2022-09-30 20:15] LABS: Strep Scrn Group A (Rapid) Positive (Negative)
--- NOTE | 2022-09-30 20:25 | PC.NURSE ---
pt over to CT
--- NOTE | 2022-09-30 20:27 | PC.NURSE ---
pt return from CT via stretcher
--- NOTE | 2022-09-30 20:49 | PC.NURSE ---
KYLAH called speaking to
--- NOTE | 2022-09-30 21:17 | PC.NURSE ---
report called to genevieve duke rn on second floor at this time
--- NOTE | 2022-09-30 21:36 | EXP.HP ---
History of Present Illness *Admission Date: 09/30/22 *Reason for visit:: Confusion *History of present illness: this is a 57-year-old female with a past medical history hyperlipidemia, prior A-fib with ablation not on anticoagulation who presents to the emergency department today with complaints of confusion. at bedside reports that patient was confused this morning with some slurred words. He reports she was eating scrambled eggs with her fingers instead of a fork. He also endorses that she slept most of the day. he was concerned about strokelike symptoms and brought patient to the emergency department. On conversation with patient, she reports feeling tired today and states that her throat started hurting this afternoon. on my exam she speaks with a thick voice. White patches noted on the posterior oropharynx. CT head CT head and neck negative. for strep throat PCR positive on exam. On arrival to the emergency department she was noted to be in A-fib with RVR but performed vagal maneuvers and has converted to normal sinus rhythm at this time. Given patient's history of A-fib, not on AC, will admit overnight for neurovascular observation and treat metabolic encephalopathy secondary to strep pharyngitis and fever. [facility] Disclaimer: The information contained in this section may have been updated after the patient was seen, as this information can be updated by other users. Medical History (Updated 10/01/22 @ 09:44 by AGNES Holland) Hyperlipidemia Surgical History (Updated 09/30/22 @ 21:36 by Erin Rowan RN) History of left knee surgery Family History (Updated 09/30/22 @ 21:36 by Erin Rowan RN) Liver cancer Father Lung cancer Father Social History (Updated 09/30/22 @ 21:35 by Erin Rowan RN) Smoking Status: Former smoker years smoked: 3 second hand exposure: No alcohol intake: never substance use type: denies use current occupational status: employed Travel in the last 8 weeks: None household members: spouse housing: house caffeine: Yes Review of Systems Review of Systems Review of systems:: pertinent systems reviewed and negative unless documented below ENT Ears, Nose, Mouth, and Throat: Reports sore throat *Cardiovascular Cardiovascular: Reports as per HPI *Neurologic Neurologic: Reports abnormal speech Meds Home Medications and Allergies Home Medications Medication Instructions Recorded Confirmed Type pravastatin 20 mg tablet 20 mg PO HS Cholesterol 06/04/21 09/30/22 History diltiazem HCl 180 mg 180 mg PO DAILY 30 days #30 caps 10/01/22 Rx capsule,extended release 24 hr rivaroxaban 20 mg tablet 20 mg PO HS 30 days #30 tabs 10/01/22 Rx New Prescriptions to Start Prescriptions: diltiazem HCl Sky Almonte rivaroxaban Sky Almonte Allergies Allergy/AdvReac Type Severity Reaction Status Date / Time No Known Drug Allergies Allergy Mild Verified 03/13/22 06:29 [NKDA] Exam Data for Last 24 hours Vital signs and Labs for Last 24 Hours: Temp Pulse Resp BP Pulse Ox 98.1 F 92 H 16 111/59 L 98 09/30/22 20:06 09/30/22 21:00 09/30/22 21:00 09/30/22 21:00 09/30/22 21:00 Laboratory Results - last 24 hr 09/30/22 18:33: WBC 18.1 H, RBC 4.43, Hgb 13.1, Hct 41.0, MCV 92.5, MCH 29.6, MCHC 32.0, RDW 13.6, Plt Count 260, MPV 8.3, Neut % (Auto) 82.2 H, Lymph % (Auto) 11.9, [place] % (Auto) 5.3, Eos % (Auto) 0.1, Baso % (Auto) 0.5, Neut # (Auto) 14.9 H, Lymph # (Auto) 2.2, [place] # (Auto) 1.0, Eos # (Auto) 0.0, Baso # (Auto) 0.1, Total Counted 100, Neutrophils % (Manual) 79 H, Band Neutrophils % 1.0, Lymphocytes % (Manual) 16, Monocytes % (Manual) 4, Platelet Estimate Normal, RBC Morphology Normal 09/30/22 18:33: PT 11.4, INR 1.06, APTT 29.4 09/30/22 18:33: Sodium 138, Potassium 3.7, Chloride 106, Carbon Dioxide 29, Anion Gap 6.7, BUN 11, Creatinine 0.70, Estimat
[2022-09-30 21:44] LABS: Hemoglobin A1C 5.3 % (4.0-6.0)
[2022-10-01] VITALS (7 sets, daily range): BP systolic 138–157; BP diastolic 76–88; PULSE 60–91; RESP 17–18; TEMP 36.7–37.1; O2SAT 97–99; BMI 34.4
--- NOTE | 2022-10-01 06:12 | PC.NURSE ---
Pt A/O x4. Pt has had no signs of facial drooping or extremity weakness. PERRLA, 3mm. Temp has remained WNL since arriving to floor. NSR on telemetry. No c/o voiced to staff. at bedside. Call light within reach.
[2022-10-01 06:42] LABS: Chloride 109 mmol/L (98-107); Potassium 3.8 mmoL/L (3.5-5.1); Sodium 139 mmol/L (136-145)
[2022-10-01 06:45] LABS: Anion Gap 5.8 mEq/L (5-15); Blood Urea Nitrogen 9 mg/dl (7-17); Carbon Dioxide 28 mmol/L (22.0-30.0); Cholesterol 160 mg/dl (140-200); Creatinine Clearance Estimated 214 mL/min (50-200); Estimated Glomerular Filt Rate 126 ml/min (>60); GFR (African American) 153 ML/MIN (>60); Glucose 119 mg/dl (74-100); Triglycerides 102 mg/dl (30-150); VLDL Cholesterol 20 mg/dL (0-40)
[2022-10-01 06:46] LABS: Calcium 7.7 mg/dl (8.4-10.2); Chol/HDL Ratio 3.1 (1-3.5); HDL Cholesterol 52 mg/dl (40-60); Magnesium 2.2 mg/dl (1.6-2.3)
[2022-10-01 06:50] LABS: Basophils # 0.1 K/mm3 (0-0.2); Basophils % 0.5 % (0.1-2.0); Eosinophils # 0.2 K/mm3 (0.0-0.4); Eosinophils % 0.9 % (0.1-12.0); Hematocrit 37.6 % (37.0-47.0); Hemoglobin 11.9 g/dL (12.2-16.2); Lymphocytes # 1.7 K/mm3 (0.7-4.5); Lymphocytes % 10.3 % (10-50); Mean Corpuscular HGB Conc 31.5 g/dL (31.8-35.4); Mean Corpuscular Hemoglobin 29.3 pg (27.0-31.2); Mean Corpuscular Volume 92.9 fl (81-99); Monocytes % 6.3 % (1.7-9.3); Neutrophils # 13.2 K/mm3 (1.8-7.8); Platelet Count 220 K/mm3 (142-424); Red Blood Count 4.05 M/mm3 (4.20-5.40); Red Cell Distribution Width 13.6 % (11.5-17.5); White Blood Count 16.1 K/mm3 (4.8-10.8)
[2022-10-01 06:53] LABS: MANUAL DIFFERENTIAL MANUAL DIFFERENTIAL (MANUAL DIFF)
[2022-10-01 06:56] LABS: Direct LDL Cholesterol 59.34 mg/dL (100-129)
[2022-10-01 07:30] LABS: Lymphocytes % 12 % (10-50); Monocytes % 3 % (2-9); Neutrophils % 85 % (42-76); Total Cells Counted 100
[2022-10-01 07:31] LABS: Platelet Estimate Normal; RBC Morphology Normal
--- NOTE | 2022-10-01 08:09 | CA_ITS ---
APPROVED REPORT EXAM: Comprehensive 2D, Doppler, and color-flow Echocardiogram Fbi Profiler: Ayla Rowan RT(R) Ht: 5 ft 10 in Wt: 246lbs BSA: 2.28 BP: 132/78 mmHg Indications: AFIB, HTN, obesity, TIA, positive for STREP, hx of AFIB not on anticoagulants. 2D Dimensions LVOT 2.07 cm (M/F) 1.5-2.5 LA Volume 52.00 mL LA Volume Index 22.81 mL/m2 (M/F) 16-34 M-Mode Dimensions RVDd 3.76 cm (0.9-2.6) LA Diam 3.77 cm (1.9-4.0) LVDd 4.56 cm (3.5-5.7) Ao Diam 2.74 cm (2.0-3.7) LVDs 3.04 cm (3.5-5.7) IVSd 0.76 cm (0.6-1.1) PWd 0.84 cm (0.6-1.1) EF (Teich) 62.10% FS 33.30% EDV (Teich) 95.40 mL ESV (Teich) 36.20 mL LV Diastology E Decel Time 177.00 (160-240 msec) E/A Ratio 1.2 MED E' 9.70 (< 7 cm/sec) E'/MED E' Ratio 9.07 (>14) LAT E' 14.00 (<10 cm/sec) E/LAT E' Ratio 6.29 (>14) Mitral Valve MV E Max Mina. 88.00 (40-130 cm/s) MV A Velocity 73.00 (40-130 cm/s) E/A Ratio 1.21 MV Decel. Time 177.00 (160-240 ms) MV PHT 52.00 ms Tricuspid Valve TR P. Velocity 237.00 cm/s RAP Estimate 10.00 mmHg RVSP 32.50 mmHg Left Ventricle Left atrium is mildly enlarged, left ventricle is normal size, estimated ejection fraction 55% with no regional wall motion abnormality, diastolic parameters are inconclusive. Right Ventricle Right atrium and right ventricular mildly enlarged with normal contractility. Aortic Valve Aortic valve is grossly normal, there is no aortic stenosis aortic insufficiency. Mitral Valve Mitral valve is grossly normal, there is trace mitral regurgitation. Tricuspid Valve Tricuspid valve is grossly normal, there is trace tricuspid regurgitation, tricuspid regurgitation jet velocity is inadequate for calculation of the right ventricular systolic pressure. Pulmonic Valve Pulmonic valve is poorly visualized. Great Vessels Aortic root is normal size. Inferior vena cava is poorly visualized. Pericardium No significant pericardial effusion noted. Conclusion 1. Mild biatrial enlargement, normal left ventricular size, estimated ejection fraction 55% with no regional wall motion abnormality, diastolic parameters are inconclusive. 2. Mildly enlarged right ventricle with normal contractility. 3. Trace mitral and tricuspid regurgitation. 4. No significant pericardial effusion noted. 5. Inferior vena cava is poorly visualized. Electronically signed by : Clifford Raygoza MD 10/01/2022 17:38:58
--- NOTE | 2022-10-01 09:20 | EXP.CARD.CON ---
History of Present Illness History of Present Illness Consult date: 10/01/22 Requesting physician: Sky Almonte Consult reason: atrial fibrillation Chief complaint: Confusion, A. fib Additional Medical History:: 1. Paroxysmal atrial fibrillation with history of electrical cardioversion, 07/2021 A. Transient anticoagulation for 10 days per patient and , [id number] B. History of 30-day monitor with no recurrent atrial fibrillation in early 2021 C. Recurrent atrial fibrillation, 09/30/2022, in setting of strep throat with fever 2. Hyperlipidemia 3. History of snoring History of present illness: ?this is a 57-year-old female with a past medical history hyperlipidemia, prior A-fib with ablation not on anticoagulation who presents to the emergency department today with complaints of confusion.? at bedside reports that patient was confused this morning with some slurred words.? He reports she was eating scrambled eggs with her fingers instead of a fork.? He also endorses that she slept most of the day. ? he was concerned about strokelike symptoms and brought patient to the emergency department. ? On conversation with patient, she reports feeling tired today and states that her throat started hurting this afternoon. on my exam she speaks with a thick voice.? White patches noted on the posterior oropharynx. ? CT head CT head and neck negative.? for strep throat PCR positive on exam.? On arrival to the emergency department she was noted to be in A-fib with RVR but performed vagal maneuvers and has converted to normal sinus rhythm at this time. ? Given patient's history of A-fib, not on AC, will admit overnight for neurovascular observation and treat metabolic encephalopathy secondary to strep pharyngitis and fever.? The above per JUMANA Sharpe, for Dr. Almonte Events as noted above confirmed with the patient. When asked about history of ablation patient refers to the cardioversion that she had in the ER approximately 14 months ago. She did see a risk control officer in [place] but there was no procedure performed. A 30-day event monitor revealed no further episodes of A-fib and the patient was not placed on anticoagulation after the initial 10 days of anticoagulation. She denies any prior GI bleeding history. Thyroid lab work is pending. relates the patient does snore quite a bit. She has never been evaluated for sleep apnea. Patient maintained sinus rhythm overnight after being given oral diltiazem. Would recommend continuing that along with placing her on anticoagulation for thrombotic CVA protection. [facility] Disclaimer: The information contained in this section may have been updated after the patient was seen, as this information can be updated by other users. Medical History (Updated 10/01/22 @ 09:44 by AGNES Holland) Hyperlipidemia Surgical History (Updated 09/30/22 @ 21:36 by Erin Rowan RN) History of left knee surgery Family History (Updated 09/30/22 @ 21:36 by Erin Rowan RN) Liver cancer Father Lung cancer Father Social History (Updated 09/30/22 @ 21:35 by Erin Rowan RN) Smoking Status: Former smoker years smoked: 3 second hand exposure: No alcohol intake: never substance use type: denies use current occupational status: employed Travel in the last 8 weeks: None household members: spouse housing: house caffeine: Yes Review of Systems *Neurologic Neurologic: Reports abnormal speech Exam Data for Last 24 hours Vital signs and Labs for Last 24 Hours: Temp Pulse Resp BP Pulse Ox 98.7 F 80 17 157/88 H 97 10/01/22 07:12 10/01/22 08:00 10/01/22 07:12 10/01/22 07:12 10/01/22 07:12 Laboratory Results - last 24 hr 09/30/22 18:33: WBC 18.1 H, RBC 4.43, Hgb 13.1, Hct 41.0, MCV 92.5, MCH 29.6, MCHC 32.0, RDW 13.6, Plt Count 260, MPV 8.3, Neut % (Auto) 82.2 H, Lymph % (Auto) 11.9, [place] % (Auto) 5.3, Eos % (Auto) 0.1, Baso % (Aut
[2022-10-01 10:07] LABS: Thyroid Stimulating Hormone 2.44 uIU/mL (0.465-4.68)
--- NOTE | 2022-10-01 12:18 | EXP.DC.SUM ---
General Admission date:: 09/30/22 Discharge date: 10/01/22 HPI HPI HPI: this is a 57-year-old female with a past medical history hyperlipidemia, prior A-fib with ablation not on anticoagulation who presents to the emergency department today with complaints of confusion. at bedside reports that patient was confused this morning with some slurred words. He reports she was eating scrambled eggs with her fingers instead of a fork. He also endorses that she slept most of the day. he was concerned about strokelike symptoms and brought patient to the emergency department. On conversation with patient, she reports feeling tired today and states that her throat started hurting this afternoon. on my exam she speaks with a thick voice. White patches noted on the posterior oropharynx. CT head CT head and neck negative. for strep throat PCR positive on exam. On arrival to the emergency department she was noted to be in A-fib with RVR but performed vagal maneuvers and has converted to normal sinus rhythm at this time. Given patient's history of A-fib, not on AC, will admit overnight for neurovascular observation and treat metabolic encephalopathy secondary to strep pharyngitis and fever. Hospital Course Hospital Course Hospital Course: 57-year-old female admitted for confusion, fever, A-fib with RVR. Diagnosed with strep pharyngitis. Symptoms improved overnight with initiation of antibiotics and treatment of infection. Back to baseline mentation morning after admission. Problems addressed as follows: metabolic encephalopathy likely secondary to fever and infection. Stroke work-up negative. Positive for strep throat. After initiating treatment, symptoms improved. Back to baseline mentation by the morning. Neuro exam normal. Fever treated symptomatically. ?atrial fibrillation with RVR likely causative agent infection and fever. Initially converted to normal sinus rhythm in the emergency department but is having small episodes of A-fib without elevated heart rate. Initiated on diltiazem extended release. Echocardiogram obtained showing preserved ejection fraction. Initiated on anticoagulation with oral Xarelto daily. Cardiology consulted to assist with rate controlling recommendations. Plan to follow-up as an outpatient with cardiology for further monitoring and management. ?streptococcal pharyngitis ?leukocytosis noted with a white blood cell count of 18. Treated with Bicillin x1. Improvement in fever overnight, Throat remains sore. counseled on typical time course for symptom resolution. No further treatment indicated. hypercholesterolemia: ?continue pravastatin Stable for discharge home. Exam Data for Last 24 hours Vital signs and Labs for Last 24 Hours: Temp Pulse Resp BP Pulse Ox 98.1 F 76 18 151/77 H 97 10/01/22 10:54 10/01/22 10:54 10/01/22 10:54 10/01/22 10:54 10/01/22 10:54 Laboratory Results - last 24 hr 09/30/22 18:33: WBC 18.1 H, RBC 4.43, Hgb 13.1, Hct 41.0, MCV 92.5, MCH 29.6, MCHC 32.0, RDW 13.6, Plt Count 260, MPV 8.3, Neut % (Auto) 82.2 H, Lymph % (Auto) 11.9, Carbon % (Auto) 5.3, Eos % (Auto) 0.1, Baso % (Auto) 0.5, Neut # (Auto) 14.9 H, Lymph # (Auto) 2.2, Carbon # (Auto) 1.0, Eos # (Auto) 0.0, Baso # (Auto) 0.1, Total Counted 100, Neutrophils % (Manual) 79 H, Band Neutrophils % 1.0, Lymphocytes % (Manual) 16, Monocytes % (Manual) 4, Platelet Estimate Normal, RBC Morphology Normal 09/30/22 18:33: PT 11.4, INR 1.06, APTT 29.4 09/30/22 18:33: Sodium 138, Potassium 3.7, Chloride 106, Carbon Dioxide 29, Anion Gap 6.7, BUN 11, Creatinine 0.70, Estimated Creat Clear 152, Estimated GFR 86, Est GFR ( Amer) 104, Glucose 136 H, Calcium 8.6, Total Bilirubin 0.6, AST 41 H, ALT 33, Alkaline Phosphatase 75, Total Protein 7.5, Albumin 4.1, Globulin 3.4 H, Albumin/Globulin Ratio 1.2 09/30/22 18:33: Hemoglobin A1c 5.3 09/30/22 19:36: SARS-CoV-2 (PCR) Not detected, Influenza A Untype (PCR) Not detected,
--- NOTE | 2022-10-01 13:03 | HMH.PHAINT1 ---
Pharmacy Intervention Comments: Discussed discharge medications with patient. Patient verbalized understanding and had no questions at this time.
--- NOTE | 2022-10-04 11:43 | CARE MANAGER ---
Spoke with patient related to hospital discharge. She is feeling better and is at work. She is aware of medications and follow up appointments. Denies any questions or concerns. GERALD Bhardwaj
== END 2022-10-01 14:15 | disposition home or self-care (01) ==
LOC: ER 20:34 → 2ND 20:59
PROVIDERS: Nurse Practitioner Acute Care; Physician Assistant; Admitting Provider Internal Medicine Adolescent Medicine; Emergency Provider Emergency Medicine; PCP Nurse Practitioner Family; Visit Provider Internal Medicine Adolescent Medicine
DX: G45.9 Transient cerebral ischemic attack, unspecified (principal); I48.91 Unspecified atrial fibrillation; J02.0 Streptococcal pharyngitis; G93.41 Metabolic encephalopathy; E78.5 Hyperlipidemia, unspecified; Z79.899 Other long term (current) drug therapy
CPT/HCPCS: 36415; 70450; 70496; 70498; 71045; 80048; 80053; 80061; 83036; 83735; 84443; 85007; 85025; 85610; 85730; 87430; 93005; 93270; 93306; 99291; C9803; G0378; J0561; Q9967; U0003; U0005

== ENCOUNTER → 2022-11-26 16:10 | Outpatient (CLI) | payer BC, SELFPAY ==
--- NOTE | 2022-11-26 16:15 | MM_ITS ---
PROCEDURE INFORMATION: Exam: MG Bilateral Screening 3D Mammography Exam date and time: 11/26/2022 4:06 PM Age: 57 years old Clinical indication: Screening. No family history of breast cancer. TECHNIQUE: Imaging protocol: Bilateral Screening tomosynthesis and 2D mammography including computer-aided detection (CAD) when performed. COMPARISON: 1. MG MM DIG SCREENING MAMM BI W/CAD 11/22/2021 3:10 PM 2. MG MM DIG SCREENING MAMM BI W/CAD 11/11/2020 3:33 PM 3. MG MM DIG SCREENING MAMM BI W/CAD 09/08/2019 3:01 PM 4. MG SCBI MM Dig screening mamm BI w/CAD 08/15/2018 3:43 PM FINDINGS: MAMMOGRAPHY: Breast composition: There are scattered areas of fibroglandular density. Mass: Questionable lobulated/irregular margin at 0.5 cm mass in the right upper breast posterior 3rd, likely in the outer quadrant better seen in the MLO (frame 26) than CC projection. Scattered bilateral sub cm oval masses. Architectural distortion: None. Calcifications: No suspicious calcifications. Asymmetric density: None. Skin thickening: None. Axillary adenopathy: None. IMPRESSION: Patient will be recalled for right diagnostic mammography with spot compression in the CC and MLO projections as well as right sonography for further evaluation of questionable lobulated/irregular margin mass in the right upper outer quadrant. ASSESSMENT: BI-RADS Category 0: Incomplete- Need Additional Imaging Evaluation and/or Prior Mammograms for Comparison
== END ==
PROVIDERS: PCP Nurse Practitioner Family; Visit Provider Nurse Practitioner Family
DX: Z12.31 Encounter for screening mammogram for malignant neoplasm of breast (principal)
CPT/HCPCS: 77063; 77067

== ENCOUNTER → 2022-12-11 13:39 | Outpatient (CLI) | payer BC, SELFPAY ==
--- NOTE | 2022-12-11 13:49 | US_ITS ---
PROCEDURE INFORMATION: Exam: US Right Breast, Complete MG Right Diagnostic Breast Tomosynthesis Exam date and time: 12/11/2022 2:25 PM Age: 57 years old Clinical indication: Patient recalled on the basis of a screening mammogram for further evaluation; Right breast; mass TECHNIQUE: Imaging protocol: Complete ultrasound of all four quadrants of the right breast and the retroareolar regions, including ultrasound of the axilla when performed. Right Diagnostic tomosynthesis and 2D mammography including computer-aided detection (CAD) when performed. Unilateral or bilateral exam. COMPARISON: MG MM DIG MAMM DX UNILAT RT CAD 12/11/2022 1:58 PM FINDINGS: MAMMOGRAPHY: Digital diagnostic spot compression views of the posterior right upper outer quadrant demonstrates a persistent round mass measuring approximately 0.5 cm in greatest dimension. Tomographic imaging suggests fairly well-circumscribed margins with the exception of a small portion of the posterior margin which may be slightly irregular. ULTRASOUND: Sonographic images of the right upper outer quadrant demonstrate a 0.5 cm benign cyst in the 10 o'clock axis 10 cm from the nipple possibly correlating with the mass on mammography. Additional 0.4 cm deep right 10 o'clock axis hypoechoic mass 3 cm from the nipple likely reflects a debris-filled cyst. No axillary adenopathy. IMPRESSION: Mass in the posterior right upper outer quadrant may correlate with a benign cyst on sonography. Given that 1-1 correlation is somewhat limited, a precautionary six-month follow-up diagnostic right mammogram is recommended to ensure stability over time. Targeted right breast ultrasound of the right 10 o'clock axis 3 cm from the nipple for a 0.4 cm probable debris-filled cyst is also recommended ASSESSMENT: BI-RADS Category 3: Probably benign
== END ==
PROVIDERS: PCP Nurse Practitioner Family; Visit Provider Nurse Practitioner Family
DX: R92.2 Inconclusive mammogram (principal)
CPT/HCPCS: 76641; 77061; 77065; G0279

== ENCOUNTER → 2023-06-17 14:42 | Outpatient (CLI) | payer BC, SELFPAY ==
--- NOTE | 2023-06-17 14:47 | MM_ITS ---
PROCEDURE INFORMATION: Exam: US Right Breast, Complete MG Right Diagnostic Breast Tomosynthesis Exam date and time: 06/17/2023 3:07 PM Age: 58 years old Clinical indication: Short-term radiographic followup; Right breast; mass TECHNIQUE: Imaging protocol: Complete ultrasound of all four quadrants of the right breast and the retroareolar regions, including ultrasound of the axilla when performed. Right Diagnostic tomosynthesis and 2D mammography including computer-aided detection (CAD) when performed. Unilateral or bilateral exam. COMPARISON: US BREAST RT COMPLETE 12/11/2022 2:25 PM FINDINGS: MAMMOGRAPHY: The breast tissue is composed of scattered areas of fibroglandular density. There is no stellate mass, architectural distortion or suspicious microcalcifications in either breast to suggest malignancy. Routine and spot compression views of the posterior right upper outer quadrant demonstrate a persistent 0.5 cm mass. On the current examination, the margins appear well-circumscribed particularly in the MLO projection. No skin thickening or axillary adenopathy. ULTRASOUND: Sonographic images of the right 10 o'clock axis 10 cm from the nipple demonstrates a 0.5 cm benign cyst. No other solid or cystic masses are noted in the remainder of the right breast. No architectural distortion or acoustical shadowing. No axillary adenopathy. IMPRESSION: Mass on screening mammography corresponds to underlying cystic change sonographically. There is no mammographic evidence of malignancy.Annual bilateral mammographic screening is recommended in 6 months unless otherwise clinically indicated. ASSESSMENT: BI-RADS Category 2: Benign
== END ==
PROVIDERS: PCP Nurse Practitioner Family; Visit Provider Nurse Practitioner Family
DX: R92.2 Inconclusive mammogram (principal)
CPT/HCPCS: 76641; 77061; 77065; G0279

== ENCOUNTER 2023-10-16 15:47 | Outpatient (CLI) | payer BC, SELFPAY ==
[2023-10-16 16:05] LABS: Basophils % 0.6 % (0.1-2.0); Eosinophils # 0.1 K/mm3 (0.0-0.4); Eosinophils % 2.1 % (0.1-12.0); Hematocrit 38.4 % (37.0-47.0); Hemoglobin 12.2 g/dL (12.2-16.2); Lymphocytes # 2.2 K/mm3 (0.7-4.5); Lymphocytes % 33.1 % (10-50); Mean Corpuscular HGB Conc 31.8 g/dL (31.8-35.4); Mean Corpuscular Hemoglobin 31.2 pg (27.0-31.2); Mean Platelet Volume 7.7 fl (7.4-10.4); Monocytes # 0.4 K/mm3 (0.1-1.0); Monocytes % 5.9 % (1.7-9.3); Neutrophils # 3.9 K/mm3 (1.8-7.8); Neutrophils % 58.4 % (37.0-80.0); Platelet Count 302 K/mm3 (142-424); Red Blood Count 3.92 M/mm3 (4.20-5.40); Red Cell Distribution Width 13.2 % (11.5-17.5); White Blood Count 6.7 K/mm3 (4.8-10.8)
[2023-10-16 17:06] LABS: Alanine Aminotransferase 24 U/L (12-78); Albumin Level 4.1 g/dl (3.5-5.0); Alkaline Phosphatase 81 U/L (38-126); Anion Gap 10.3 mEq/L (5-15); Aspartate Amino Transferase 24 U/L (14-36); Bilirubin,Direct 0.2 mg/dl (0.0-0.4); Bilirubin,Indirect 0.1 mg/dL (0.0-0.9); Bilirubin,Total 0.3 mg/dl (0.2-1.3); Bilirubin,Unconjugated 0.1 mg/dL (0.0-1.1); Blood Urea Nitrogen 21 mg/dl (7-17); Calcium 8.9 mg/dl (8.4-10.2); Carbon Dioxide 26 mmol/L (22.0-30.0); Chloride 107 mmol/L (98-107); Chol/HDL Ratio 2.9 (1-3.5); Cholesterol 201 mg/dl (140-200); Estimated Glomerular Filt Rate 85 ml/min (>60); GFR (African American) 103 ML/MIN (>60); Glucose 92 mg/dl (74-100); HDL Cholesterol 70 mg/dl (40-60); Potassium 4.3 mmoL/L (3.5-5.1); Sodium 139 mmol/L (136-145); Total Protein,Serum 6.7 g/dl (6.3-8.2); Triglycerides 61 mg/dl (30-150); VLDL Cholesterol 12 mg/dL (0-40)
== END 2023-10-16 23:59 ==
LOC: LAB 15:47
PROVIDERS: PCP Nurse Practitioner Family; Visit Provider Nurse Practitioner
DX: I10 Essential (primary) hypertension (principal); E78.5 Hyperlipidemia, unspecified
CPT/HCPCS: 36415; 80048; 80061; 80076; 85025

== ENCOUNTER 2024-07-07 15:56 | Outpatient (CLI) | payer BC, SELFPAY ==
--- NOTE | 2024-07-07 16:01 | MM_ITS ---
PROCEDURE INFORMATION: Exam: MG Bilateral Screening 3D Mammography Exam date and time: 07/07/2024 3:58 PM Age: 59 years old Clinical indication: Screening examination TECHNIQUE: Imaging protocol: Bilateral Screening tomosynthesis and 2D mammography including computer-aided detection (CAD) when performed. COMPARISON: 1. MG MM DIG MAMM DX UNILAT RT CAD 06/17/2023 2:38 PM 2. MG MM DIG MAMM DX UNILAT RT CAD 12/11/2022 1:58 PM FINDINGS: MAMMOGRAPHY: Breast composition: There are scattered areas of fibroglandular density. Mass: None. Architectural distortion: None. Calcifications: No suspicious calcifications. Asymmetric density: None. Skin thickening: None. Axillary adenopathy: None. IMPRESSION: No mammographic evidence of malignancy. Annual screening is recommended unless otherwise clinically indicated. ASSESSMENT: BI-RADS Category 1: Negative.
== END 2024-07-07 23:59 | disposition home or self-care (01) ==
LOC: RAD 15:57
PROVIDERS: PCP Nurse Practitioner Family; Visit Provider Nurse Practitioner Family
DX: Z12.31 Encounter for screening mammogram for malignant neoplasm of breast (principal)
CPT/HCPCS: 77063; 77067

== ENCOUNTER 2025-04-26 15:36 | Outpatient (CLI) | payer BC, SELFPAY ==
--- NOTE | 2025-04-26 15:38 | MR_ITS ---
PROCEDURE INFORMATION: Exam: MR Left Upper Extremity Joint Without and With Contrast; Elbow Exam date and time: 04/26/2025 4:09 PM Age: 60 years old Clinical indication: Pain; Elbow; Left; Additional info: Knot on the posterior aspect of the elbow , marker placed on location. Tender to the touch. 1 month TECHNIQUE: Imaging protocol: Magnetic resonance imaging of the left upper extremity without and with contrast. Exam focused on the elbow. Contrast material: PROHANCE; Contrast volume: 22 ml; Contrast route: IV; COMPARISON: No relevant prior studies available. FINDINGS: Bones/joints: No acute fractures, dislocations, or focal bone lesions. Joint space narrowing, subchondral cystic changes, and bone hypertrophy affect the humeral radial joint. A small cleft in the articular surface of the capitellum of the humerus and a partially fused oval bone fragment posterior to the capitellum indicate an old healed humerus fracture. Mild bone marrow edema in the radial head is reactive from arthritis. Bone hypertrophy affects the coronoid process and olecranon process of the ulna. Bursae: Mild subcutaneous or bursal edema posterior to the olecranon of the ulna has no soft tissue mass or organized fluid, and there is no bone marrow or periosteal edema in the olecranon. Ulnar (medial) collateral ligament: No tear. Radial collateral ligament of the elbow: No tear. Annular ligament of the radius: No tear. Tendon of the biceps brachii: No tear. Tendon of the brachialis: No tear. Triceps tendon: No tear. Common flexor tendon: No tear. Common extensor tendon: No tear. Soft tissues: No masses or edema. IMPRESSION: 1. 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 2. Mild olecranon bursitis in the left elbow.
[2025-04-26 16:18] LABS: Blood Urea Nitrogen 22 mg/dl (7-17); Creatinine,Serum 0.80 mg/dl (0.52-1.04); Estimated Glomerular Filt Rate 73 ml/min (>60); GFR (African American) 88 ML/MIN (>60)
[2025-04-26] MEDS: IOPAMIDOL-370 (76%);100ML BOTTLE 22 ML IV (17:19)
[2025-04-26] MEDS: SODIUM CHLORIDE 0.9% 10ML SYR (RAD ONLY) 10 ML IV (17:19)
== END 2025-04-26 23:59 | disposition home or self-care (01) ==
PROVIDERS: PCP Nurse Practitioner Family; Visit Provider Orthopaedic Surgery Adult Reconstructive Orthopaedic Surgery
DX: M19.122 Post-traumatic osteoarthritis, left elbow (principal); M70.22 Olecranon bursitis, left elbow
CPT/HCPCS: 73223; 82565; 84520; Q9967

== ENCOUNTER 2025-08-06 12:37 | Outpatient (CLI) | payer BC, SELFPAY ==
--- NOTE | 2025-08-06 12:38 | MM_ITS ---
PROCEDURE INFORMATION: Exam: MG Bilateral Screening 3D Mammography Exam date and time: 08/06/2025 12:49 PM Age: 60 years old Clinical indication: Screening mammogram TECHNIQUE: Imaging protocol: Bilateral Screening tomosynthesis and 2D mammography including computer-aided detection (CAD) when performed. COMPARISON: 1. MG MM DIG SCREENING MAMM BI W/CAD 07/07/2024 3:58 PM 2. MG MM DIG MAMM DX UNILAT RT CAD 06/17/2023 2:38 PM 3. MG MM DIG MAMM DX UNILAT RT CAD 12/11/2022 1:58 PM 4. MG MM DIG SCREENING MAMM BI W/CAD 11/26/2022 4:06 PM FINDINGS: MAMMOGRAPHY: Breast composition: There are scattered areas of fibroglandular density. Mass: Stable benign-appearing subcentimeter nodules are present in the right breast. No new or morphologically suspicious nodule has developed to suggest malignancy. Architectural distortion: No new or suspicious architectural distortion. Calcifications: No new or suspicious calcifications are present Asymmetric density: No new or suspicious asymmetric density is present Skin thickening: None. Axillary adenopathy: None. IMPRESSION: No mammographic evidence of malignancy. Recommend annual screening mammography unless otherwise clinically indicated. ASSESSMENT: BI-RADS category 2: Benign.
--- OUTSIDE RECORDS SUMMARY | 2025-08-06 12:38 | XMS_ITS ---
Author Organization Unknown ENCOUNTERS Encounter Performer Location Date Diagnosis Diagnosis Status Outpatient [facility] [place] [address] [place] [address] [id number] [facility] Joey Styles [facility] [place] [address] [place] [id number] [facility] Enzo Faith [facility] [place] [address] [place] [address] [id number] [facility] Emergency Milana Sin [place] [address] [place] [address] [id number] JENNA *Note: Encounters from your own facility or health system may be excluded. Allergies, Adverse Reactions, Alerts Allergen Type Severity Identification Date Medications Name Date Quantity Days Supplied GPI Number
--- OUTSIDE RECORDS SUMMARY | 2025-08-06 12:38 | XMS_ITS | Data Portability ---
Author Organization [facility] - DEANNE Chavez [facility] Address [address] [place] [address] Assessment Encounter Date Assessment Date Assessment LastModified by Organization Details LastModified Time 08/21/2018 08/21/2018 Mrs. 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 I think that she has a prominent S1-S2 disc. I believe there is a fragment of disc in the right L4-5 foramen and that she had suffered from an L4 radiculopathy. I think that this is resolving. I'm recommending a transforaminal injection on the right at L4-5. Again, it is important to note that she has a remnant disc at S1 -S2 which is quite prominent. I also encouraged her to trial diclofenac for the back pain. I think she can likely get over this without surgical intervention. He'll follow up with me on an as-needed basis. [email or web address] Not available 08/21/2018 10:10:04 09/01/2018 09/01/2018 53-year-old female presenting for evaluation of lumbar back pain. Patient reports axial back pain with occasional radicular symptoms down the right lateral side of the foot since January 2018. She is seen and undergone chiropractic therapy without improvement. Patient has been seen and evaluated by neurosurgery, Dr. Sykes, referred for injection therapy. Lumbar MRI shows transitional anatomy with degenerative changes throughout the lumbar spine and facet arthropathy. There are disc bulges at both L4-5 and L5-S1 with resultant foraminal stenosis bilaterally. On exam, patient has preserved motor strength throughout. Symptoms appear consistent with L4-5 radiculopathy. We discussed right L4-5 transforaminal epidural steroid injection to help improve pain complaints. Risks and benefits of the procedure were explained to the patient she wishes to proceed. Plan scheduled patient for right L4-5 transforaminal epidural steroid injection next available appointment. Patient will follow up in 1 month for further evaluation. [email or web address] Not available 09/01/2018 09:45:02 10/10/2018 10/10/2018 53-year-old female presenting for follow-up with regards to lumbar back pain. At her last appointment, patient underwent right L4-5 transforaminal lumbar epidural steroid injection. She returns today reporting 60-70% pain improvement following the procedure. She reports that the pain is not nearly as severe as it was prior to the procedure and she is overall happy with her pain improvement. She would like to hold off on any repeat procedures at this time as it is not particularly bothersome to her. She will plan to follow up as needed for any additional treatment measures. [email or web address] Not available 10/10/2018 15:16:31 Plan of Treatment Reminders Order Date Submit Date Provider Last Modified By Organization Details Last Modified Time Details Appointments None record ed. Lab None record ed. Referral None record ed. Procedures None record ed. Surgeries None record ed. Imaging None record ed. Medication Orders None record ed. Patient TargetsNo targets recorded. Patient Instructions Encounter Date Encounter Id Patient Instructions Last Modified By Organization Details Last Modified Time 09/01/2018 [id number] WRAP-UP Thank you for visiting [facility] today. At today's visit the following were addressed: - SCHEDULE right L4L5 TFESI Thank you for visiting the [facility]. -Because of the high volume of calls we receive and the high demand for our clinical services, please allow for 24 hours for us to respond to patient calls. We are generally unable to discuss patient care advice over the telephone. If you are experiencing a medication side effect or complication, you can call and let us know, but we will typically not make a medication substitution or change agent the telephone. -Acute exacerbations of pain and flare ups are quite common in chronic pain states and need to be dealt with as part of the assisted management plan. Please make an appointment with us if you wish to discuss a matter in any detail. Should you still need to call, please do so at . For additional information and services provided by our clinic you may visit our Pain Management Clinic website at: [email or web address] Thank you for choosing [facility]. It was a pleasure to see you in clinic today. Please contact us with any questions or concerns at . Not available 09/01/2018 09:10:43 10/10/2018 [id number] WRAP-UP Thank you for visiting [facility] today. At today's visit the following were addressed: - PRN Thank you for visiting the [facility]. -Because of the high volume of calls we receive and the high demand for our clinical services, please allow for 24 hours for us to respond to patient calls. We are generally unable to discuss patient care advice over the telephone. If you are experiencing a medication side effect or complication, you can call and let us know, but we will typically not make a medication substitution or change agent the telephone. 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 Please make an appointment with us if you wish to discuss a matter in any detail. Should you still need to call, please do so at . For additional information and services provided by our clinic you may visit our [facility] Management Clinic website at: [email or web address] Thank you for choosing [facility]. It was a pleasure to see you in clinic today. Please contact us with any questions or concerns at . Not available 10/10/2018 15:10:28 Reason for Referral None Reported. Results Created Date Observation Date Name Description Value Unit Range Abnormal Flag Note LastModifiedBy Organization Detail LastModifiedTime 07/22/20 18 07/15/2018 MRI, lumba r spine , w/o contr ast No observ ation record ed. BARCODE Not Available 2017 10:34:42 Result Notes None recorded. Procedures Surgical History Date Name Laterality Status Provider Name and Address Organization Details Recorded Time 09/18/19 19 Injection - Transforaminal Epidural completed GARCIA KHAN MD [address] [place] [address], [phone], [place] [facility] 09/18/2018 13:29:00 Imaging Results None recorded. Procedure Notes None recorded. Medical Equipment None Reported. Allergies No known drug allergies Medications Name Sig Start Date Stop Date Status Note LastModified by Organization Details LastModified Time cyclobenzaprine 10 mg tablet active Not Available Not Available Not Available pravastatin 40 mg tablet active Not Available Not Available No t Available prednisone 20 mg tablet active Not Available Not Available Not Available gabapentin 300 mg capsule active Not Available Not Available N ot Available diclofenac sodium 75 mg tablet,delayed release Take 1 tablet twice a day by oral route. active Not Available Not Available No t Available methylprednisolo ne 4 mg tablets in a dose pack active Not Available Not Availab le Not Available Cryselle (28) 0.3 mg-30 mcg tablet active Not Available Not Available Not Available Havrix (PF) 1,440 KYREE unit/mL intramuscular syringe active Not Available Not Available Not Available Prepopik 10 mg-3.5 gram-12 gram oral powder packet active Not Available Not Available Not Available Afluria Quad (PF) 60 mcg (15 mcg x 4)/0.5 mL IM syringe active Not Available Not Available Not Available Vitals Date Recorded Body height Body mass index (BMI) Body weight Systolic And Diastolic Provider Name and Address Organization Details Last Updated DateTime 08/21/2018 177.8 cm 8.3 kg/m2 53565.36 g 136/82 mm[Hg] Noelle Ivan [facility] 08/21/2018 09:00:07 Date Recorded Body height Body mass index (BMI) Body weight Systolic And Diastolic Provider Name and Address Organization Details Last Updated DateTime 09/01/2018 177.8 cm 37.3 kg/m2 193023.02 g 150/80 mm[Hg] [facility] 09/01/2018 08:32:34 Date Recorded Body height Body mass index (BMI) Body weight Systolic And Diastolic Provider Name and Address Organization Details Last Updated DateTime 10/10/2018 177.8 cm 37.3 kg/m2 074911.02 g 160/80 mm[Hg] [facility] 10/10/2018 15:04:35 Social History Question Answer Notes LastModified by Organizat ion Details LastModified Time Tobacco Smoking Status Former Smoker Noelle Ivan [facility] 08/21/2018 08:58:52 What Was The Date Of Your Most Recent Tobacco Screening? 10/10/2018 Information n ot available 09/29/2019 Sex: Unknown Functional Status None recorded. Mental Status None recorded. Family History Relationship Description Onset Age of this Age Resolved Age Notes LastModified by Organization Details LastModified Time Unspecified Relation Malignant neoplastic disease [email or web address] Not available 08/21 08:58:57 Unspecified Relation Diabetes mellitus [email or web address] Not available 08/21 08:59:02 Unspecified Relation Hypertensive disorder [email or web address] Not available 08/21 08:59:09 Medical History Condition Response High Cholesterol Y Gynecological HistoryNo gynecological history recorded. Obstetrics History GPAL:G 0 P 0 0 0 0 Past Encounters Encounter ID Performer Location Encounter Start Date Encounter Closed Date Diagnosis/Indication Diagnosis SNOMED-CT Code Diagnosis ICD10 Code Diagnosis IMO Codes Diagnosis Note [id number] BENJAMIN SYKES MD [facility] [address] [place] [address] 08/21/2018 08:28:03 08/22/2018 08:41:23 Lumbar radiculopathy 713631534 M54.16 [id number] GARCIA KHAN MD [facility] [address] [address] 09/01/2018 08:07:10 09/01/2018 09:25:32 Lumbar radiculopathy 372666660 M54.16 [id number] GARCIA KHAN MD [facility] [address] [place] [address] 09/18/2018 13:10:12 09/22/2018 14:24:43 Lumbar radiculopathy 314268751 M54.16 [id number] GARCIA KHAN MD [facility] [address] [place] [address] 10/10/2018 14:43:07 10/10/2018 15:12:14 Lumbar radiculopathy 097706859 M54.16 Health Concerns Section Related Observation LastModified by Organization Detai ls LastModified Time None Recorded Concern Status LastModified by Organization Details LastModified Time None Recorded Advance Directives Directive None Recorded Payers Insurance Date Sequence Insurance Name Policy Number Policy Carpenter Covered Member ID Carpenter Member ID Guarantor Name 07/06/2020 1 [id number] [id number] Devora Hay [id number] Devora Hay 12/14/2020 PAYMENT PLAN Devora Hay Notes Date Note Type Note Provider Name and Address Organization Details Recorded Time 08/21/2018 text/html Mrs. Hay is a 53-year-old female who experienced severe right lower extremity radiculopathy at the end of January. The radicular pain has subsided, but she continues to have significant thoracic and lumbar back pain. She also describes some numbness in her anterior grover from her knee to her foot. She describes generalized 6 out of 10 pain which is aching and sharp. The pain is intermittent. She gets some relief from placing ice on her back. The pain is worse with bending. She describes numbness and tingling in her distal right lower extremity. No significant weakness or loss of bowel or bladder control. She underwent 7 visits with a chiropractor. She has trialed steroids as well as anti-inflammatories. BENJAMIN SYKES MD [address] [place] [address], [phone], [facility] 08/21/2018 10:10:14 09/01/2018 text/html Pain Management InitialReported by PatientPain Management InitialFor quality, patient reportsachinganddull. For timing, patient reportschronic. For context, patient reportsbending. For alleviating factors, patient reportslying down,heat, andrest. For aggravating factors, patient reportssittingandrom. For associated symptoms, patient reportsno weakness,no numbness, andno tingling. For previous surgery, patient reportsnone. For prior imaging, patient reportsmri. For previous injections, patient reportsnone. For previous pt, patient reportsnone. 53-year-old female presenting for evaluation of lumbar back pain. Patient reports axial back pain with occasional pain down the right lateral thigh to the foot. Patient has been seen and evaluated by neurosurgery, Dr. Sykes, and referred for injection therapy. Lumbar MRI shows transitional anatomy with degenerative changes throughout the lumbar spine and facet arthropathy. There are disc bulges at both L4-5 and L5-S1 with resultant foraminal stenosis bilaterally. She has tried chiropractic therapy without relief. GARCIA KHAN MD [address] [place] [address] [place], [address], [facility] 09/01/2018 09:45:21 10/10/2018 text/html 53yo female presenting for followup of lumbar back pain. At her last appointment, patient underwent right L4L5 TFESI. Patient reports 60-70% improvement in symptoms following the procedure. She is overall happy with her pain improvement. GARCIA KHAN MD [address] [place] [address] [place], [address], [facility] 10/10/2018 15:16:42 OBGyn Episode No OBEpisode recorded.
--- OUTSIDE RECORDS SUMMARY | 2025-08-06 12:38 | XMS_ITS | Clinical Summary ---
Author Organization [facility] Address [address] [place] [address] Care Team Providers Care Sealer Aircraft Name Role Phone Marlena Das APRN Primary Care Provider [phone] Allergies No known active allergies Medications pravastatin (PRAVACHOL) 40 MG tablet Take 1 tablet by mouth Daily. Active Eliquis 5 MG tablet tablet Take 1 tablet by mouth 2 (Two) Times a Day. 10/09/2022 Active dilTIAZem CD (CARDIZEM CD) 180 MG 24 hr capsule Take 1 capsule by mouth Daily. 10/12/2022 Active Family History Medical History Relation Name Comments Cancer Father Relation Name Status Comments Father Mother Social History Tobacco Use Types Packs/Day Years Used Date Smoking Tobacco: Former Cigarettes Q uit: 06/07/1984 Smokeless Tobacco: Never Alcohol Use Standard Drinks/Week Comments Not Currently 0 (1 standard drink = 0.6 oz pur e alcohol) Abuse Screen Answer Date Recorded Unsafe at Home or Work/School Not on file Feels Threatened by Someone? Not on file 04/2023 Does Anyone Keep You from Co ntacting Others or Doint Things Outside the Home? Not on file 05/20/2023 Physical Sign of Abuse Present Not on file 1 Housing Stability Answer Date Recorded Current Living Arrangements Not on file 04/2023 Potentially Unsafe Housing Conditions Not on re e 05/20/2023 Family and Community Support Answer Kalia e Recorded Help with Day-to-Day Activities Not on file 05/20/2023 Lonely or Isolated Not on file 05/20/2023 Employment Answer Date Recorded Do you want help finding or keeping work or a adrian b? Not on file 05/20/2023 Disabilities Answer Date Recorded Concentrating, Remembering, or Making Decisions Difficulty Not on file 05/20/2023 Doing Errands Independently Difficulty Not on fi le 05/20/2023 Education Answer Date Recorded Help with school or training? Not on file Preferred Language Not on file 05/20/2023 Comments Unknown Sex and Gender Information Value Date Recorded Sex Assigned at Not on file Legal Sex Female 12:32 PM EDT Gender Identity Not on file Sexual Orientation Not on file Last Filed Vital Signs Vital Sign Reading Time Taken Comments Blood Pressure 130/78 10/18/2022 3:16 PM EST Pulse 66 10/18/2022 3:16 PM EST Temperature - - Respiratory Rate - - Oxygen Saturation 98% 10/18/2022 3:16 PM EST Inhaled Oxygen Concentration - - Weight 113 kg (249 lb) 10/18/2022 3:16 PM EST Height 177.8 cm (5' 10 ) 10/18/2022 3:16 PM EST Body Mass Index 35.73 10/18/2022 3:16 PM EST Plan of Treatment Health Maintenance Due Date Last Done Comments Annual Gynecologic Pelvic and Breast Exam 1963 LIPID PANEL 1963 TDAP/TD VACCINES (1 - Tdap) 1982 MAMMOGRAM 2003 COLOGUARD 2008 COLON CANCER SCREENING 5 YEAR SIGMOIDOSCOPY 2008 COLONOSCOPY 2008 [address] CANCER SCREENING 2008 CT COLONOGRAPHY 2008 FECAL OCCULT BLOOD TEST 2008 FIT Testing (1 year) 2008 Pneumococcal Vaccine 50+ (1 of 1 - PCV) 2013 ZOSTER VACCINE (1 of 2) 2013 ANNUAL PHYSICAL 06/06/2021 HEPATITIS C SCREENING 06/06/2021 INFLUENZA VACCINE 03/12/[address] [employer] Care Teams Sealer Aircraft Relationship Specialty Start Date End Date Marlena Das APRN [address] [place] [address] PCP - General Nurse Practitioner 06/06/21
--- OUTSIDE RECORDS SUMMARY | 2025-08-06 12:39 | XMS_ITS | Data Portability ---
Author Organization [facility] [employer] [facility] Address [address] [place] [address] Care Team Providers Care Route Salesman Name Role Phone [facility] Primary Care Provider Assessment Encounter Date Assessment Date Assessment LastModified by Organization Details LastModified Time 05/04/2025 05/04/2025 Devora Hay, a 60-year-old female, presented with a dog scratch to her right anterior lower leg sustained Saturday from her vaccinated dog after accidentally stepping on it. The wound broke skin but showed no signs of infection. She had been self-treating with hydrogen peroxide and Neosporin. With tetanus vaccination >10 years ago, she received Tdap. Instructions included cleaning with antibacterial soap, continuing Neosporin application, bandaging twice daily, and monitoring for infection. [email or web address] Not available 05/04/2025 17:34:53 Plan of Treatment Reminders Order Date Submit Date Provider Last Modified By Organization Details Last Modified Time Details Appointments ANNUAL EXAM 2025 09:00A Candelaria Das APRN Not available Not available Not available Lab lipid panel, serum 2024 025 ABI [facility] ([place]), [address] [place], [address], 02/18/2025 07:07:45 TSH, ultra-sen sitive, serum 2024 025 RA[address] [facility] ([place]), [address] [place], [address], 02/18/2025 07:07:46 CBC w/ auto diff 2024 025 ABI [facility] ([place]), [address] [place], [address], 02/18/2025 07:07:44 CMP, serum or plasma 2024 025 ABI [facility] ([place]), [address] [place], [address], 02/18/2025 07:07:44 HbA1c (hemoglob in A1c), blood 2024 025 ABI [facility] ([place]), [address] [place], [address], 02/18/2025 07:07:46 CMP, serum or plasma 2023 024 ABI [facility] ([place]), [address] [place], [address], 07/22/2024 08:13:28 CBC w/ auto diff 2023 024 ABI [facility] ([place]), [address] [place], [address], 07/22/2024 08:13:27 TSH, ultra-sen sitive, serum 2023 024 RA[address] [facility] ([place]), [address] [place], [address], 07/22/2024 08:13:28 Referral orthopedi c surgeon referral - first avail, needs later afternoon appt please. 2024 025 [facility], [address], [place], [address], 04/14/2025 11:13:09 Procedures None recorded. Surgeries None recorded. Imaging XR, elbow, 3 or more view [address], [address] [place] [address], [place], [address], 03/15/2025 13:10:00 XR, foot, 3 or more view 2023 024 [facility], [address] [place] [address], [id number], 06/29/2024 13:37:37 XR, ankle, 3 or more view 2023 024 [facility], [address] [place] [address], [id number], 06/29/2024 13:38:30 Medication Orders Depo-Medr ol 40 mg/mL suspensio n for injection 2024 025 [email or web address] Not available 05/04/2025 15:46:43 pravastat in 40 mg tablet 2024 025 RAILRO[address] [facility], [address] [place] [address], [id number], 06/29/2025 15:35:56 diltiazem CD 180 mg capsule,e xtended release 24 hr 2024 025 RAILRO[address] [facility], [address] [place] [address], [id number], 07/10/2025 15:05:23 Eliquis 5 mg tablet 2024 025 RAILRO[address] [facility], [address] [place] [address], [id number], 08/03/2025 15:38:25 losartan 50 mg-hydroc hlorothia zide 12.5 mg tablet 2024 025 RAIL[address] [facility], [address] [place] [address], [id number], 02/18/2025 14:09:32 pravastat in 40 mg tablet 2023 024 RA[address] [facility], [address] [place] [address], [id number], 04/30/2025 12:59:24 diltiazem CD 180 mg capsule,e xtended release 24 hr 2023 024 [facility], [address] [place] [address], [id number], 02/16/2025 10:11:58 Eliquis 5 mg tablet 2023 024 [facility], [address] [place] [address], [id number], 01/26/2025 13:29:52 losartan 50 mg tablet 2023 025 [facility], [address] [place] [address], [id number], 07/27/2025 15:21:32 Patient TargetsNo targets recorded. Patient InstructionsNo instructions recorded. Reason for Referral Orthopedic Surgeon Referral for Bursitis of olecranon of left elbow first avail, needs later afternoon appt please. Referring Physician: Marlena Das, Family Medicine, Encounter Date: 03/15/2025 Results Created Date Observation Date Name Description Value Unit Range Abnormal Flag Note LastModifiedBy Organization Detail LastModifiedTime 07/21/20 24 07/22/2024 CBC WITH DIFFE RENTI AL/PL ATELE T WBC 7.9 x10e3 /uL 3.4-10 .8 normal Not Available [facility] ([facility]) [address] [place], [address], 07/22/2024 08:13:27 07/21/20 24 07/22/2024 CBC WITH DIFFE RENTI AL/PL ATELE T RBC 3.83 x10e6 /uL 3.77-5 .28 normal Not Available [facility] ([facility]) [address] [place], [address], 07/22/2024 08:13:27 07/21/20 24 07/22/2024 CBC WITH DIFFE RENTI AL/PL ATELE T hemoglobin 11.5 g/dL 11.1-1 5.9 normal Not Available [facility] ([facility]) [address] [facility], [place], [address], 07/22/2024 08:13:27 07/21/20 24 07/22/2024 CBC WITH DIFFE RENTI AL/PL ATELE T hematocrit 36.8 % 34.0-4 6.6 normal Not Available [facility] ([facility]) [address] [facility], [place], [address], 07/22/2024 08:13:27 07/21/20 24 07/22/2024 CBC WITH DIFFE RENTI AL/PL ATELE T MCV 96 fL 79-97 normal Not Available [facility] ([facility]) [address] [facility], [place], [address], 07/22/2024 08:13:27 07/21/20 24 07/22/2024 CBC WITH DIFFE RENTI AL/PL ATELE T MCH 30.0 pg 26.6-3 3.0 normal Not Available [facility] ([facility]) [address] [place], [address], 07/22/2024 08:13:27 07/21/20 24 07/22/2024 CBC WITH DIFFE RENTI AL/PL ATELE T MCHC 31.3 g/dL 31.5-3 5.7 below low normal Not Available [facility] ([facility]) [address] [place], [address], 07/22/2024 08:13:27 07/21/20 24 07/22/2024 CBC WITH DIFFE RENTI AL/PL ATELE T RDW 12.0 % 11.7-1 5.4 Not Available [facility] ([facility]) [address] [place], [address], 07/22/2024 08:13:27 07/21/20 24 07/22/2024 CBC WITH DIFFE RENTI AL/PL ATELE T platelets 262 x10e3 /uL 150-45 0 normal Not Available [facility] ([facility]) [address] [facility], [place], [address], 07/22/2024 08:13:27 07/21/20 24 07/22/2024 CBC WITH DIFFE RENTI AL/PL ATELE T neutrophils 59 % not estab. normal Not Available [facility] ([facility]) [address] [facility], [place], [address], 07/22/2024 08:13:27 07/21/20 24 07/22/2024 CBC WITH DIFFE RENTI AL/PL ATELE T lymphs 30 % not estab. normal Not Available [facility] ([facility]) [address] [facility], [place], [address], 07/22/2024 08:13:27 07/21/20 24 07/22/2024 CBC WITH DIFFE RENTI AL/PL ATELE T monocytes 8 % not estab. normal Not Available [facility] ([facility]) [address] [facility], [place], [address], 07/22/2024 08:13:27 07/21/20 24 07/22/2024 CBC WITH DIFFE RENTI AL/PL ATELE T eos 2 % not estab. normal Not Available [facility] ([facility]) [address] [place], [address], 07/22/2024 08:13:27 07/21/20 24 07/22/2024 CBC WITH DIFFE RENTI AL/PL ATELE T basos 1 % not estab. normal Not Available [facility] ([facility]) [address] [place], [address], 07/22/2024 08:13:27 07/21/20 24 07/22/2024 CBC WITH DIFFE RENTI AL/PL ATELE T immature cells CAREER SERVICES DIRECTOR Not Available [facility] ([facility]) [address] [place], [address], 07/22/2024 08:13:27 07/21/20 24 07/22/2024 CBC WITH DIFFE RENTI AL/PL ATELE T neutrophils (absolute) 4.8 x10e3 /uL 1.4-7. 0 normal Not Available [facility] ([facility]) [address] [place], [address], 07/22/2024 08:13:27 07/21/20 24 07/22/2024 CBC WITH DIFFE RENTI AL/PL ATELE T lymphs (absolute) 2.3 x10e3 /uL 0.7-3. 1 normal Not Available [facility] ([facility]) [address] [place], [address], 07/22/2024 08:13:27 07/21/20 24 07/22/2024 CBC WITH DIFFE RENTI AL/PL ATELE T monocytes(ab solute) 0.6 x10e3 /uL 0.1-0. 9 normal Not Available [facility] ([facility]) [address] [place], [address], 07/22/2024 08:13:27 07/21/20 24 07/22/2024 CBC WITH DIFFE RENTI AL/PL ATELE T eos (absolute) 0.1 x10e3 /uL 0.0-0. 4 normal Not Available [facility] ([facility]) [address] [place], [address], 07/22/2024 08:13:27 07/21/20 24 07/22/2024 CBC WITH DIFFE RENTI AL/PL ATELE T baso (absolute) 0.1 x10e3 /uL 0.0-0. 2 normal Not Available [facility] ([facility]) [address] [place], [address], 07/22/2024 08:13:27 07/21/20 24 07/22/2024 CBC WITH DIFFE RENTI AL/PL ATELE T immature granulocytes 0 % not estab. Not Available [facility] ([facility]) [address] [facility], [place], [address], 07/22/2024 08:13:27 07/21/20 24 07/22/2024 CBC WITH DIFFE RENTI AL/PL ATELE T immature grans (abs) 0.0 x10e3 /uL 0.0-0. 1 Not Available [facility] ([facility]) [address] [facility], [place], [address], 07/22/2024 08:13:27 07/21/20 24 07/22/2024 CBC WITH DIFFE RENTI AL/PL ATELE T NRBC CAREER SERVICES DIRECTOR Not Available [facility] ([facility]) [address] [facility], [place], [address], 07/22/2024 08:13:27 07/21/20 24 07/22/2024 CBC WITH DIFFE RENTI AL/PL ATELE T hematology comments: CAREER SERVICES DIRECTOR Not Available [facility] ([facility]) [address] [facility], [place], [address], 07/22/2024 08:13:27 07/21/20 24 07/22/2024 COMP. METAB OLIC PANEL (14) glucose 87 mg/dL 70-99 normal Not Available [facility] ([facility]) [address] [facility] [place], [address], 07/22/2024 08:13:28 07/21/20 24 07/22/2024 COMP. METAB OLIC PANEL (14) BUN 18 mg/dL 8-27 normal Not Available [facility] ([facility]) [address] [facility] [place], [address], 07/22/2024 08:13:28 07/21/20 24 07/22/2024 COMP. METAB OLIC PANEL (14) creatinine 0.73 mg/dL 0.57-1 .00 normal Not Available [facility] ([facility]) [address] [facility], [place], [address], 07/22/2024 08:13:28 07/21/20 24 07/22/2024 COMP. METAB OLIC PANEL (14) eGFR 94 mL/mi n/1.7 3 >59 normal Not Available [facility] ([facility]) [address], [place], [address], 07/22/2024 08:13:28 07/21/20 24 07/22/2024 COMP. METAB OLIC PANEL (14) BUN/creatini ne ratio 25 12-28 normal Not Available [facility] ([facility]) [address] [place], [address], 07/22/2024 08:13:28 07/21/20 24 07/22/2024 COMP. METAB OLIC PANEL (14) sodium 142 mmol/ L 134-14 4 normal Not Available [facility] ([facility]) [address] [facility], [place], [address], 07/22/2024 08:13:28 07/21/20 24 07/22/2024 COMP. METAB OLIC PANEL (14) potassium 4.5 mmol/ L 3.5-5. 2 normal Not Available [facility] ([facility]) [address] [facility], [place], [address], 07/22/2024 08:13:28 07/21/20 24 07/22/2024 COMP. METAB OLIC PANEL (14) chloride 105 mmol/ L 96-106 normal Not Available [facility] ([facility]) [address] [facility] [place], [address], 07/22/2024 08:13:28 07/21/20 24 07/22/2024 COMP. METAB OLIC PANEL (14) carbon dioxide, total 23 mmol/ L 20-29 normal Not Available [facility] ([facility]) [address] [facility] [place], [address], 07/22/2024 08:13:28 07/21/20 24 07/22/2024 COMP. METAB OLIC PANEL (14) calcium 9.0 mg/dL 8.7-10 .3 normal Not Available [facility] ([facility]) [address] [place], [address], 07/22/2024 08:13:28 07/21/20 24 07/22/2024 COMP. METAB OLIC PANEL (14) protein, total 6.7 g/dL 6.0-8. 5 normal Not Available [facility] ([facility]) [address] [place], [address], 07/22/2024 08:13:28 07/21/20 24 07/22/2024 COMP. METAB OLIC PANEL (14) albumin 4.3 g/dL 3.9-4. 9 normal Not Available [facility] ([facility]) [address] [place], [address], 07/22/2024 08:13:28 07/21/20 24 07/22/2024 COMP. METAB OLIC PANEL (14) globulin, total 2.4 g/dL 1.5-4. 5 Not Available [facility] ([facility]) [address] [place], [address], 07/22/2024 08:13:28 07/21/20 24 07/22/2024 COMP. METAB OLIC PANEL (14) bilirubin, total 0.3 mg/dL 0.0-1. 2 normal Not Available [facility] ([facility]) [address] [place], [address], 07/22/2024 08:13:28 07/21/20 24 07/22/2024 COMP. METAB OLIC PANEL (14) alkaline phosphatase 82 IU/L 44-121 normal Not Available [facility] ([facility]) [address] [place], [address], 07/22/2024 08:13:28 07/21/20 24 07/22/2024 COMP. METAB OLIC PANEL (14) AST (SGOT) 18 IU/L 0-40 normal Not Available [facility] ([facility]) [address] [facility] [place], [address], 07/22/2024 08:13:28 07/21/20 24 07/22/2024 COMP. METAB OLIC PANEL (14) ALT (SGPT) 18 IU/L 0-32 normal Not Available [facility] ([facility]) [address] [facility], [place], [address], 07/22/2024 08:13:28 07/21/20 24 07/22/2024 TSH RFX ON ABNOR MAL TO FREE T4 TSH 1.360 uIU/m L 0.450- 4.500 normal Not Available [facility] ([facility]) [address] [facility] [place], [address], 07/22/2024 08:13:28 02/18/20 25 02/18/2025 CBC WITH DIFFE RENTI AL/PL ATELE T WBC 5.1 x10e3 /uL 3.4-10 .8 normal Not Available [facility] ([facility]) [address] [place], [address], 02/18/2025 07:07:44 02/18/20 25 02/18/2025 CBC WITH DIFFE RENTI AL/PL ATELE T RBC 4.07 x10e6 /uL 3.77-5 .28 normal Not Available [facility] ([facility]) [address] [place], [address], 02/18/2025 07:07:44 02/18/20 25 02/18/2025 CBC WITH DIFFE RENTI AL/PL ATELE T hemoglobin 12.5 g/dL 11.1-1 5.9 normal Not Available [facility] ([facility]) [address] [place], [address], 02/18/2025 07:07:44 02/18/20 25 02/18/2025 CBC WITH DIFFE RENTI AL/PL ATELE T hematocrit 40.5 % 34.0-4 6.6 normal Not Available [facility] ([facility]) [address] [place], [address], 02/18/2025 07:07:44 02/18/20 25 02/18/2025 CBC WITH DIFFE RENTI AL/PL ATELE T MCV 100 fL 79-97 above high normal Not Available [facility] ([facility]) [address] [place], [address], 02/18/2025 07:07:44 02/18/20 25 02/18/2025 CBC WITH DIFFE RENTI AL/PL ATELE T MCH 30.7 pg 26.6-3 3.0 normal Not Available [facility] ([facility]) [address] [place], [address], 02/18/2025 07:07:44 02/18/20 25 02/18/2025 CBC WITH DIFFE RENTI AL/PL ATELE T MCHC 30.9 g/dL 31.5-3 5.7 below low normal Not Available [facility] ([facility]) [address] [place], [address], 02/18/2025 07:07:44 02/18/20 25 02/18/2025 CBC WITH DIFFE RENTI AL/PL ATELE T RDW 12.7 % 11.7-1 5.4 Not Available [facility] ([facility]) [address] [place], [address], 02/18/2025 07:07:44 02/18/20 25 02/18/2025 CBC WITH DIFFE RENTI AL/PL ATELE T platelets 256 x10e3 /uL 150-45 0 normal Not Available [facility] ([facility]) [address] [place], [address], 02/18/2025 07:07:44 02/18/20 25 02/18/2025 CBC WITH DIFFE RENTI AL/PL ATELE T neutrophils 63 % not estab. normal Not Available [facility] ([facility]) [address] [facility], [place], [address], 02/18/2025 07:07:44 02/18/20 25 02/18/2025 CBC WITH DIFFE RENTI AL/PL ATELE T lymphs 27 % not estab. normal Not Available [facility] ([facility]) [address] [facility], [place], [address], 02/18/2025 07:07:44 02/18/20 25 02/18/2025 CBC WITH DIFFE RENTI AL/PL ATELE T monocytes 7 % not estab. normal Not Available [facility] ([facility]) [address] [facility], [place], [address], 02/18/2025 07:07:44 02/18/20 25 02/18/2025 CBC WITH DIFFE RENTI AL/PL ATELE T eos 2 % not estab. normal Not Available [facility] ([facility]) [address] [facility], [place], [address], 02/18/2025 07:07:44 02/18/20 25 02/18/2025 CBC WITH DIFFE RENTI AL/PL ATELE T basos 1 % not estab. normal Not Available [facility] ([facility]) [address] [facility], [place], [address], 02/18/2025 07:07:44 02/18/20 25 02/18/2025 CBC WITH DIFFE RENTI AL/PL ATELE T immature cells CAREER SERVICES DIRECTOR Not Available [facility] ([facility]) [address] [facility], [place], [address], 02/18/2025 07:07:44 02/18/20 25 02/18/2025 CBC WITH DIFFE RENTI AL/PL ATELE T neutrophils (absolute) 3.2 x10e3 /uL 1.4-7. 0 normal Not Available [facility] ([facility]) [address] [facility], [place], [address], 02/18/2025 07:07:44 02/18/20 25 02/18/2025 CBC WITH DIFFE RENTI AL/PL ATELE T lymphs (absolute) 1.4 x10e3 /uL 0.7-3. 1 normal Not Available [facility] ([facility]) [address] [facility], [place], [address], 02/18/2025 07:07:44 02/18/20 25 02/18/2025 CBC WITH DIFFE RENTI AL/PL ATELE T monocytes(ab solute) 0.3 x10e3 /uL 0.1-0. 9 normal Not Available [facility] ([facility]) [address] [facility], [place], [address], 02/18/2025 07:07:44 02/18/20 25 02/18/2025 CBC WITH DIFFE RENTI AL/PL ATELE T eos (absolute) 0.1 x10e3 /uL 0.0-0. 4 normal Not Available [facility] ([facility]) [address] [facility], [place], [address], 02/18/2025 07:07:44 02/18/20 25 02/18/2025 CBC WITH DIFFE RENTI AL/PL ATELE T baso (absolute) 0.0 x10e3 /uL 0.0-0. 2 normal Not Available [facility] ([facility]) [address] [place], [address], 02/18/2025 07:07:44 02/18/20 25 02/18/2025 CBC WITH DIFFE RENTI AL/PL ATELE T immature granulocytes 0 % not estab. Not Available [facility] ([facility]) [address] [facility], [place], [address], 02/18/2025 07:07:44 02/18/20 25 02/18/2025 CBC WITH DIFFE RENTI AL/PL ATELE T immature grans (abs) 0.0 x10e3 /uL 0.0-0. 1 Not Available [facility] ([facility]) [address] [facility], [place], [address], 02/18/2025 07:07:44 02/18/20 25 02/18/2025 CBC WITH DIFFE RENTI AL/PL ATELE T NRBC CAREER SERVICES DIRECTOR Not Available [facility] ([facility]) [address] [facility], [place], [address], 02/18/2025 07:07:44 02/18/20 25 02/18/2025 CBC WITH DIFFE RENTI AL/PL ATELE T hematology comments: CAREER SERVICES DIRECTOR Not Available [facility] ([facility]) [address] [facility], [place], [address], 02/18/2025 07:07:44 02/18/20 25 02/18/2025 COMP. METAB OLIC PANEL (14) glucose 100 mg/dL 70-99 above high normal Not Available [facility] ([facility]) [address] [facility], [place], [address], 02/18/2025 07:07:44 02/18/20 25 02/18/2025 COMP. METAB OLIC PANEL (14) BUN 13 mg/dL 8-27 normal Not Available [facility] ([facility]) [address] [facility], [place], [address], 02/18/2025 07:07:44 02/18/20 25 02/18/2025 COMP. METAB OLIC PANEL (14) creatinine 0.70 mg/dL 0.57-1 .00 normal Not Available [facility] ([facility]) [address] [facility], [place], [address], 02/18/2025 07:07:44 02/18/20 25 02/18/2025 COMP. METAB OLIC PANEL (14) eGFR 98 mL/mi n/1.7 3 >59 normal Not Available [facility] ([facility]) [address] [place], [address], 02/18/2025 07:07:44 02/18/20 25 02/18/2025 COMP. METAB OLIC PANEL (14) BUN/creatini ne ratio 19 12-28 normal Not Available [facility] ([facility]) [address] [place], [address], 02/18/2025 07:07:44 02/18/20 25 02/18/2025 COMP. METAB OLIC PANEL (14) sodium 143 mmol/ L 134-14 4 normal Not Available [facility] ([facility]) [address] [place], [address], 02/18/2025 07:07:44 02/18/20 25 02/18/2025 COMP. METAB OLIC PANEL (14) potassium 4.7 mmol/ L 3.5-5. 2 normal Not Available [facility] ([facility]) [address] [place], [address], 02/18/2025 07:07:44 02/18/20 25 02/18/2025 COMP. METAB OLIC PANEL (14) chloride 104 mmol/ L 96-106 normal Not Available [facility] ([facility]) [address] [place], [address], 02/18/2025 07:07:44 02/18/20 25 02/18/2025 COMP. METAB OLIC PANEL (14) carbon dioxide, total 22 mmol/ L 20-29 normal Not Available [facility] ([place] [facility]) [address] [place], [address], 02/18/2025 07:07:44 02/18/20 25 02/18/2025 COMP. METAB OLIC PANEL (14) calcium 9.3 mg/dL 8.7-10 .3 normal Not Available [facility] ([place] [facility]) [address] [facility], [place], [address], 02/18/2025 07:07:44 02/18/20 25 02/18/2025 COMP. METAB OLIC PANEL (14) protein, total 7.1 g/dL 6.0-8. 5 normal Not Available [facility] ([facility]) [address] [place], [address], 02/18/2025 07:07:44 02/18/20 25 02/18/2025 COMP. METAB OLIC PANEL (14) albumin 4.4 g/dL 3.9-4. 9 normal Not Available [facility] ([facility]) [address] [facility] [place], [address], 02/18/2025 07:07:44 02/18/20 25 02/18/2025 COMP. METAB OLIC PANEL (14) globulin, total 2.7 g/dL 1.5-4. 5 Not Available [facility] ([facility]) [address] [facility], [place], [address], 02/18/2025 07:07:44 02/18/20 25 02/18/2025 COMP. METAB OLIC PANEL (14) bilirubin, total 0.3 mg/dL 0.0-1. 2 normal Not Available [facility] ([facility]) [address] [facility], [place], [address], 02/18/2025 07:07:44 02/18/20 25 02/18/2025 COMP. METAB OLIC PANEL (14) alkaline phosphatase 86 IU/L 44-121 normal Not Available [facility] ([facility]) [address] [facility] [place], [address], 02/18/2025 07:07:44 02/18/20 25 02/18/2025 COMP. METAB OLIC PANEL (14) AST (SGOT) 20 IU/L 0-40 normal Not Available [facility] ([facility]) [address] [facility] [place], [address], 02/18/2025 07:07:44 02/18/20 25 02/18/2025 COMP. METAB OLIC PANEL (14) ALT (SGPT) 20 IU/L 0-32 normal Not Available [facility] ([facility]) [address] [facility] [place], [address], 02/18/2025 07:07:44 02/18/20 25 02/18/2025 LIPID PANEL cholesterol, total 203 mg/dL 100-19 9 above high normal Not Available [facility] ([facility]) [address] [facility] [place], [address], 02/18/2025 07:07:45 02/18/20 25 02/18/2025 LIPID PANEL triglyceride s 71 mg/dL 0-149 normal Not Available [facility] ([facility]) [address] [place], [address], 02/18/2025 07:07:45 02/18/20 25 02/18/2025 LIPID PANEL HDL cholesterol 78 mg/dL >39 normal Not Available [facility] ([facility]) [address] [place], [address], 02/18/2025 07:07:45 02/18/20 25 02/18/2025 LIPID PANEL VLDL cholesterol josie 13 mg/dL 5-40 Not Available [facility] ([facility]) [address] [place], [address], 02/18/2025 07:07:45 02/18/20 25 02/18/2025 LIPID PANEL LDL chol calc ([facility]) 112 mg/dL 0-99 above high normal Not Available [facility] ([facility]) [address] [place], [address], 02/18/2025 07:07:45 02/18/20 25 02/18/2025 LIPID PANEL LDL calc comment: CAREER SERVICES DIRECTOR Not Available [facility] ([facility]) [address] [place], [address], 02/18/2025 07:07:45 02/18/20 25 02/18/2025 HEMOG LOBIN A1C hemoglobin A1C 5.5 % 4.8-5. 6 normal Predi abete s: 5.7 - 6.4 Diabe guillermina: >6.4 Glyce dann contr ol for adult s with diabe guillermina: <7.0 Not Available [facility] ([facility]) [address] [facility], [place], [address], 02/18/2025 07:07:46 02/18/20 25 02/18/2025 TSH RFX ON ABNOR MAL TO FREE T4 TSH 1.340 uIU/m L 0.450- 4.500 normal Not Available [facility] ([facility]) [address] [facility], [place], [address], 02/18/2025 07:07:46 06/29/20 24 XR, foot, 3 or more view No observ ation record ed. [id number] [address], [address], 06/29/2024 14:08:30 06/29/20 24 XR, ankle , 3 or more view No observ ation record ed. [address], [address], 06/29/2024 14:08:31 07/13/20 24 07/07/2024 MAMMO , scree manpreet, digit al, bilat eral No observ ation record ed. [facility] [address], [place], [address], 07/14/2024 15:33:23 03/15/20 25 XR, elbow , 3 or more view No observ ation record ed. [address], [address], 03/15/2025 12:41:09 04/28/20 25 04/26/2025 MRI, elbow , w/o contr ast No observ ation record ed. [email or web address] [facility] [address], [place], [address], 04/30/2025 13:39:35 Result Notes None recorded. Problems Name Problem SNOMED Code Status Onset Date Resolution Date Notes Provider Name and Address Organization Details Recorded Time Pain in left knee Completed 201603/08/2017 Problem Code: M25.562; Problem Code Type: ICD-10; Not Available [facility] 2 22:44:04 Knee pain Completed 201603/08/2017 Problem Code: 719.46; Problem Code Type: ICD-9; Not Available [facility] 22:44:04 Obesity 464101708 Completed 201602/05/[address] [facility] 2 22:43:56 Acute maxillar y sinusiti s 02702681 Completed 201602/05/2018 Problem Code: J01.01; Problem Code Type: ICD-10; SLICK tinsley [employer] 3 17:34:31 Breast neoplasm screenin g status 995033743 Completed 201608/14/2017 Problem Code: Z12.39; Problem Code Type: ICD-10; Not Available [facility] 2 22:44:02 Acute sinusiti s 36675219 Completed 201606/24/2017 Problem Code: J01.90; Problem Code Type: ICD-10; Not Available [facility] 2 22:44:02 Screenin g for malignan t neoplasm of breast Completed 201608/14/2017 Problem Code: V76.10; Problem Code Type: ICD-9; Not Available [facility] 22:44:05 Medical examinat ion for suspecte d conditio n Completed 201711/11/2017 Problem Code: Z03.89; Problem Code Type: ICD-10; SLICK tinsley, [employer] 3 17:34:31 Examinat ion for suspecte d tubercul osis Completed 201711/11/2017 Problem Code: V71.2; Problem Code Type: ICD-9; Not Available [facility] 2 22:44:07 Low back pain co-occur rent with neuralgi a of right sciatic nerve [id number] 9105 Completed 201704/06/2018 Problem Code: M54.41; Problem Code Type: ICD-10; Not Available [facility] 2 22:43:57 Body mass index 30+ - obesity 871763340 Completed 201706/01/2019 Problem Code: Z68.38; Problem Code Type: ICD-10; Marlena Das APRN [address] [place], [address] , [employer] 5 16:07:20 Sciatica 87225157 Completed 201704/06/2018 Problem Code: 724.3; Problem Code Type: ICD-9; Not Available [facility] 2 22:44:08 Lumbosac ral radiculo silvana 4177128 Completed 201708/27/2022 Problem Code: M54.17; Problem Code Type: ICD-10; SLICK BREAUXAQUILES tinsley, [employer] 3 17:34:31 Low back pain 111496609 Completed 201707/02/2018 Problem Code: M54.5; Problem Code Type: ICD-10; Not Available [facility] 2 22:43:57 Elevated blood-pr essure reading without diagnosi s of hyperten lucita 168984151 Completed 201704/22/2018 Marlena Das APRN [address] [place], [address] , [employer] 4 15:56:22 Choleste rol screenin g Completed 201705/05/[address] [facility] 2 22:44:02 Hyperlip idemia screenin g Completed 201705/05/2018 Problem Code: V77.91; Problem Code Type: ICD-9; Not Available [facility] 2 22:44:07 History and physical examinat ion, pre-empl oyment Completed 201707/02/2018 Problem Code: Z02.1; Problem Code Type: ICD-10; Not Available [facility] 2 22:44:00 Health examinat ion of sub-grou p Completed 201707/02/2018 Problem Code: V70.5; Problem Code Type: ICD-9; Not Available [facility] 2 22:44:05 Degenera tion of lumbosac ral interver tebral disc 10727346 Completed 201706/01/2019 Problem Code: M51.37; Problem Code Type: ICD-10; Not Available [facility] 2 22:43:57 Degenera tion of lumbar interver tebral disc 71015084 Completed 201706/01/2019 Problem Code: M51.36; Problem Code Type: ICD-10; Not Available [facility] 2 22:43:57 Localize d swelling , mass and lump, neck Completed 201709/28/2018 Problem Code: R22.1; Problem Code Type: ICD-10; Not Available [facility] 2 22:43:58 Screenin g mammogra phy Completed 201709/28/2018 Problem Code: Z12.31; Problem Code Type: ICD-10; SLICK tinsley, [employer] 3 17:34:31 Mass of head and/or neck 877750396 Completed 201709/28/2018 Not Available [facility] 2 22:44:04 Acute laryngit is 8745193 Completed 201808/27/2022 Problem Code: J04.0; Problem Code Type: ICD-10; SLICK tinsley, [employer] 3 17:34:31 Mixed hyperlip idemia 600941586 Active 2018 Problem Code: E78.2; Problem Code Type: ICD-10; Not Available [facility] 2 22:43:56 Irregula r periods 53557382 Completed 201808/27/2022 SLICK READR null, [employer] 3 17:34:31 Finding of Mantoux test 921239259 Completed 201808/27/2022 Problem Code: Z11.1; Problem Code Type: ICD-10; SLICK BREAUXNEAR null, [employer] 3 17:34:31 Medical examinat ion for suspecte d conditio n Completed 201806/01/2019 Problem Code: Z03.89; Problem Code Type: ICD-10; SLICK BREAUXNEAR null, [employer] 3 17:34:31 Examinat ion for suspecte d tubercul osis Completed 201810/31/2018 Problem Code: V71.2; Problem Code Type: ICD-9; Not Available [facility] 2 22:44:06 Patellof emoral osteoart hritis 952969261 Active 2018 Problem Code: M17.12; Problem Code Type: ICD-10; Not Available [facility] 2 22:43:57 Hordeolu m externum of lower eyelid of left eye 53146679286 9102 Completed 201806/01/2019 Problem Code: H00.025; Problem Code Type: ICD-10; Not Available [facility] 2 22:43:56 General examinat ion of patient Completed 201806/30/2020 Not Available [facility] 2 22:43:59 Body mass index 30+ - obesity 384259316 Completed 201806/30/2020 Problem Code: Z68.37; Problem Code Type: ICD-10; Marlena Das, KIMMY [address] [place] [address], [address] , [employer] 5 16:07:20 Screenin g mammogra phy Completed 201906/30/2020 Problem Code: Z12.31; Problem Code Type: ICD-10; SLICK READR null, [employer] 3 17:34:31 Acute maxillar y sinusiti s 39057296 Completed 201908/27/2022 Problem Code: J01.01; Problem Code Type: ICD-10; SLICK BREAUXNEAR null, [employer] 3 17:34:31 Candidia sis of vulva 9403179 Completed 201909/23/[address] [facility] 2 22:43:56 Urinary tract infectio us disease 34056081 Completed 201908/27/2022 Problem Code: N39.0; Problem Code Type: ICD-10; SLICK BREAUXNEAR null, [employer] 3 17:34:31 Dysuria 01080478 Completed 201908/27/2022 Problem Code: R30.0; Problem Code Type: ICD-10; SLICK BREAUXNEAR null, [employer] 3 17:34:31 Medical examinat ion for suspecte d conditio n Completed 201901/30/2021 Problem Code: Z03.89; Problem Code Type: ICD-10; SLICK BREAUXNEAR null, [employer] 3 17:34:31 General examinat ion of patient Active [address] [facility] 2 22:43:59 Body mass index 30+ - obesity 950462140 Completed 202012/26/2020 Problem Code: Z68.38; Problem Code Type: ICD-10; Marlena Das, PHYSICIAN OPHTHALMOLOGIST [address] [place], [address] , [employer] 5 16:07:20 Screenin g mammogra phy Completed 202012/26/2020 Problem Code: Z12.31; Problem Code Type: ICD-10; SLICK tinsley, [employer] 3 17:34:31 Pain of left lower leg 33684974116 9101 Completed 202008/27/2022 Problem Code: M79.662; Problem Code Type: ICD-10; SLICK ATKINS null, [employer] 3 17:34:31 Body mass index 30+ - obesity 913534715 Completed 202001/30/2021 Problem Code: Z68.34; Problem Code Type: ICD-10; Marlena Das APRN [address] [place], [address] , [employer] 5 16:07:20 Body mass index 30+ - obesity 659119129 Active 2020 Problem Code: Z68.33; Problem Code Type: ICD-10; Malrena Das APRN [address] [place], [address] , [employer] 5 16:07:20 Sampling of vagina for Papanico laou smear Completed 202008/27/2022 Problem Code: Z01.419; Problem Code Type: ICD-10; SLICK ATKINS null, [employer] 3 17:34:31 History of polyp of colon 898418496 Completed 202008/27/2022 Problem Code: Z86.010; Problem Code Type: ICD-10; SLICK ATKINS null, [employer] 3 17:34:31 Paroxysm al atrial fibrilla tion 306788553 Active 2020 Problem Code: I48.0; Problem Code Type: ICD-10; Not Available [facility] 2 22:44:01 Screenin g mammogra phy Completed 202108/27/2022 Problem Code: Z12.31; Problem Code Type: ICD-10; SLICK READR null, [employer] 3 17:34:31 Divertic ulum of Eustachi an tube 938536223 Completed 202108/27/2022 Problem Code: H69.83; Problem Code Type: ICD-10; SLICK BREAUXNEAR null, [employer] 3 17:34:31 Otogenic otalgia 63037956 Completed 202108/27/2022 SLICK BREAUXNEAR null, [employer] 3 17:34:31 Pneumoni a due to Influenz a A virus Completed 202108/27/2022 Problem Code: J09.X1; Problem Code Type: ICD-10; SLICK BREAUXNEAR null, [employer] 3 17:34:31 Influenz a caused by Influenz a A virus 562738582 Completed 202108/27/2022 SLICK READR null, [employer] 3 17:34:31 Medical examinat ion for suspecte d conditio n Completed 202108/27/2022 Problem Code: Z03.89; Problem Code Type: ICD-10; SLICK READR null, [employer] 3 17:34:31 Examinat ion for suspecte d tubercul osis Completed 202102/13/2022 Problem Code: V71.2; Problem Code Type: ICD-9; Not Available [facility] 2 22:44:05 Obstruct bernard sleep apnea syndrome 68048482 Active 2023 Marlena Das APRN [address] [place], [address] , [employer] 4 16:43:15 Essentia l hyperten lucita 28900154 Active 2023 Marlena Das APRN [address] [place], [address] , [employer] 4 15:56:41 Pain of elbow region 72278454 Active 2024 Marlena Das APRN [address] [place], [address] , [employer] 5 10:03:11 Bursitis of olecrano n of left elbow 43022507777 9101 Active 2024 Marlena Das APRN [address] [place], [address] , [employer] 5 10:21:24 Problem Notes None recorded. Procedures Surgical History Date Name Laterality Status Provider Name and Address Organization Details Recorded Time 07/07/20 24 Most Recent Mammogram completed [employer] 07/21/2024 15:50:10 03/13/20 22 colonoscopy completed [employer] 09/28/2022 09:25:27 01/31/20 21 Date of Last Pap Smear completed Khushbu Dasilva [employer] 10/03/2022 09:26:21 04/09/20 19 arthroscopy completed Not Available [facility] 04/17/20 22 22:56:23 Imaging Results None recorded. Procedure Notes None recorded. Medical Equipment None Reported. Allergies No known drug allergies Medications Name Sig Start Date Stop Date Status Note LastModified by Organization Details LastModified Time losartan 50 mg tablet TAKE 1 TABLET 1 TIME EACH DAY active Not Available Not Available No t Available cyclobenzap rine 10 mg tablet 1 tablet tid prn 07/02 completed Not Available Not Available Not Available prednisone 10 mg tablet TAKE 6 TABLETS ON 12/28 TO 12/30. TAKE 5 TABLETS ON 12/31 TO 01/02. TAKE 4 TABLETS ON 01/03 TO 01/05. TAKE 3 TABLETS ON 01/06 TO 01/08. TAKE 2 TABLETS ON 01/09 TO 01/11. TAKE 1 TABLET ON 01/12 TO 01/14. 09/28 completed Not Available Not Available Not Available Depo-Medrol 40 mg/mL suspension for injection Take 1 mL by injection route. 05/04 completed Not Available Not Available Not Available pravastatin 40 mg tablet TAKE 1 TABLET 1 TIME EACH DAY AT BEDTIME active Not Available Not Available No t Available diltiazem CD 180 mg capsule,ext ended release 24 hr TAKE 1 CAPSULE 2 TIMES EACH DAY active Not Available Not Available No t Available fluconazole 150 mg tablet take 1 tablet (150 mg) by oral route once x1 09/14 completed Not Available Not Available Not Available Medrol (Daniel) 4 mg tablets in a dose pack take by oral route as directed per package instructi ons 06/14 completed Not Available Not Available Not Available Aplisol 5 tub. unit/0.1 mL intradermal injection solution Inject 0.1 mL by intraderm al route. 06/29 completed Not Available Not Available Not Available prednisone 20 mg tablet Take 2 tablets PO for 5 days 10/15 completed Not Available Not Available Not Available methylpredn isolone 4 mg tablet dose pack 02/21 completed Not Available Not Available Not Available sulfamethox azole 800 mg-trimetho prim 160 mg tablet take 1 tablet by oral route every 12 hours for 5 days 09/14 completed Not Available Not Available Not Available doxycycline monohydrate 100 mg tablet Take 1 tablet(s) by mouth bid 08/23 completed Not Available Not Available Not Available terbinafine HCl 250 mg tablet TAKE 1 TABLET 1 TIME EACH DAY active Not Available Not Available No t Available meclizine 25 mg tablet TAKE 1 TABLET EVERY 8 HOURS NEEDED FOR VERTIGO 09/28 completed Not Available Not Available Not Available prednisone 2.5 mg tablet TAKE 2 TABLETS ON 01/15 TO 01/17. TAKE 1/2 TABLET ON 01/18 TO 03/22. 09/28 completed Not Available Not Available Not Available cephalexin 500 mg capsule TAKE 1 CAPSULE EVERY 12 HOURS FOR 10 DAYS 01/19 completed Not Available Not Available Not Available losartan 25 mg tablet Take 1 tablet every day by oral route. 03/20 completed Not Available Not Available Not Available gabapentin 300 mg capsule 1 Capsule three times a day by mouth 04/06 completed Not Available Not Available Not Available diclofenac sodium 75 mg tablet,job yed release Take 1 tablet(s) by mouth bid 07/02 completed Not Available Not Available Not Available Low-Ogestre l (28) 0.3 mg-30 mcg tablet Take 1 tablet(s) by mouth daily as directed. 07/02 completed Not Available Not Available Not Available furosemide 20 mg tablet TAKE 1 TABLET 1 TIME EACH DAY NEEDED 02/17 completed Not Available Not Available Not Available losartan 50 mg-hydrochl orothiazide 12.5 mg tablet TAKE 1 TABLET 1 TIME EACH DAY FOR BLOOD PRESSURE active Not Available Not Available No t Available cefdinir 300 mg capsule TAKE 1 CAPSULE WITH FOOD EVERY 12 HOURS FOR 10 DAYS. 10/04 completed Not Available Not Available Not Available fluticasone propionate 50 mcg/actuati on nasal spray,suspe nsion SPRAY 1 TIME IN EACH NOSTRIL 2 TIMES EACH DAY 09/10 completed Not Available Not Available Not Available amoxicillin 875 mg-potassiu m clavulanate 125 mg tablet take 1 tablet by oral route every 12 hours x 10 days with food 09/28 completed Not Available Not Available Not Available Xarelto 20 mg tablet TAKE 1 TABLET 1 TIME EACH DAY WITH THE EVENING MEAL 10/09 completed Not Available Not Available Not Available Pen Needle 32 gauge x /32 Use to inject Saxenda daily 10/09 completed Not Available Not Available Not Available Eliquis 5 mg tablet TAKE 1 TABLET 2 TIMES EACH DAY active Not Available Not Available No t Available Saxenda 3 mg/0.5 mL (18 mg/3 mL) subcutaneou s pen injector inject 3 mg by subcutane ous route once daily in the abdomen, thigh, or upper arm 08/27 completed Not Available Not Available Not Available Vitals Date Recorded Body height Body mass index (BMI) Body weight Body temperature Heart rate Oxygen saturation Systolic And Diastolic Systolic And Diastolic Systolic And Diastolic Provider Name and Address Organization Details Last Updated DateTime 177.8 cm 37.7 kg/m2 169665. 64 g 98 [degF] 66 /min 97 % 156/62 mm[Hg] 143/63 mm[Hg] 142/65 mm[Hg] SLICK READR [employer] 5 08:14:11 Date Recorded Body height Body mass index (BMI) Body weight Body temperature Heart rate Oxygen saturation Systolic And Diastolic Provider Name and Address Organization Details Last Updated DateTime 5 177.8 cm 37.2 kg/m2 160762. 58 g 98.1 [degF] 54 /min 96 % 139/62 mm[Hg] [facility] READR [employer] 5 09:59:10 Date Recorded Body height Body mass index (BMI) Body weight Body temperature Heart rate Oxygen saturation Systolic And Diastolic Systolic And Diastolic Systolic And Diastolic Provider Name and Address Organization Details Last Updated DateTime 5 177.8 cm 37.2 kg/m2 850991. 42 g 98.8 [degF] 73 /min 95 % 150/70 mm[Hg] 170/62 mm[Hg] 147/66 mm[Hg] [employer] 5 15:46:39 Date Recorded Body height Body mass index (BMI) Body weight Body temperature Heart rate Oxygen saturation Systolic And Diastolic Provider Name and Address Organization Details Last Updated DateTime 4 177.8 cm 36.2 kg/m2 403577. 28 g 97.9 [degF] 76 /min 95 % 137/64 mm[Hg] SLICK READR [employer] 4 09:34:43 Date Recorded Body height Body mass index (BMI) Body weight Body temperature Heart rate Oxygen saturation Systolic And Diastolic Provider Name and Address Organization Details Last Updated DateTime 4 177.8 cm 36.4 kg/m2 006924. 46 g 97.8 [degF] 61 /min 96 % 130/61 mm[Hg] SLICK READR [employer] 4 15:49:32 Social History Question Answer Notes LastModified by Organizat ion Details LastModified Time Tobacco Smoking Status Never Smoker SLICK BREAUXAQUILES tinsley, [employer] 08/27/2022 17:35:41 Do You Have An Advance Directive? No Information n ot available 08/27/2022 Is Your Home Air Conditioned? Yes Information not available 08/27/2022 In The 14 Days Before Symptom Onset, Have You Had Close Contact With A Laboratory-confirm ed COVID-19 While That Case Was Ill? No Information n ot available 08/27/2022 In The 14 Days Before Symptom Onset, Have You Had Close Contact With A Person Who Is Under Investigation For COVID-19 While That Person Was Ill? No Information not available 08/27/2022 Have You Been To An Area Known To Be High Risk For COVID-19? No Information not available 08/27/2022 What Type Of Diet Are You Following? REGULAR Information n ot available 08/27/2022 Who Is Your Employer? [employer] Information not available 08/27/2022 Have There Been Any Changes To Your Family Or Social Situation? No Information no t available 08/27/2022 Are There Any Guns Present In Your Home? No Information not available 08/27/2022 Do You Have A Medical Power Of Lining Stitcher? No Information not available 08/27/2022 What Was The Date Of Your Most Recent Tobacco Screening? 05/04/2025 Information not available 05/04/2025 What Is Your Relationship Status? Information not available 08/27/2022 Do You Use Your Seat Belt Or Car Seat Routinely? Yes Information not available 08/27/2022 Do You Have Smoke And Carbon Monoxide Detectors In Your Home? Yes Information not available 08/27/2022 Are You Passively Exposed To Smoke? No Information no t available 08/27/2022 Are There Any Smokers In Your House? No Information not available 08/27/2022 Do You Use Sunscreen Routinely? No Information not available 08/27/2022 Have You Recently Traveled Abroad? No Information not available 08/27/2022 Are You Currently In School? No Information not available 08/27/2022 Do You Have Any Dietary Restrictions? No Information not available 08/27/2022 Sex: Female Functional Status Question Answer Note LastModified by Organizat ion Details LastModified Time Do you use any illicit or recreational drugs? No Information not available 08/27/2022 Do you or have you ever used any other forms of tobacco or nicotine? No Information not available 06/28/2023 What is your level of alcohol consumption? None Information not available 08/27/2022 Are you currently employed? Yes Information not available 08/27/2022 Do you have transportation difficulties? No Information not available 08/27/2022 Are you able to care for yourself independently? Yes Information not available 08/27/2022 Mental Status None recorded. Family History Relationship Description Onset Age of this Age Resolved Age Notes LastModified by Organization Details LastModified Time Unspecified Relation Family history of malignant neoplasm [email or web address] Not available 2022 09:26:27 Unspecified Relation Family history of diabetes mellitus type 2 [email or web address] Not available 2022 09:26:32 Unspecified Relation Family history of malignant neoplasm [email or web address] Not available 2022 09:26:29 Medical History Condition Response Polyps Y High Cholesterol Y Gynecological History Statement/Question Response Date of Last Pap Smear 01/30/2021 Most Recent Mammogram 07/07/2024 Obstetrics History GPAL:G 0 P 0 0 0 0 Immunizations Vaccine Type Date Status Note Provider Nam e and Address Organization Details Recorded Time Influenza, split virus, trivalent, PF 4 completed Pennie Nguyen, PHYSICIAN OPHTHALMOLOGIST [address] [place], [address], [employer] 06/02/2024 14:09:35 Influenza, adjuvanted, quadrivalent, PF 1 completed Not Available [facility] 04/18/2022 00:03:08 COVID-19, mRNA, LNP-S, PF, 100 mcg/0.5mL dose or 50 mcg/0.25mL dose 1 completed SLICK tinsley, [employer] 08/27/2022 17:33:12 COVID-19, mRNA, LNP-S, PF, 100 mcg/0.5mL dose or 50 mcg/0.25mL dose 1 completed SLICK MYNEAR null, [employer] 08/27/2022 17:33:12 Influenza, split virus, quadrivalent, preservative 8 completed Not Available [facility] 04/18/2022 00:03:09 Influenza, split virus, trivalent, preservative 9 completed Not Available [facility] 04/23/2023 15:48:11 Influenza, split virus, quadrivalent, PF 2 completed SLICK MYNEAR null, [employer] 08/27/2022 17:33:12 COVID-19, mRNA, LNP-S, PF, 100 mcg/0.5mL dose or 50 mcg/0.25mL dose 1 completed SLICK MYNEAR null, [employer] 08/27/2022 17:33:12 Influenza, split virus, quadrivalent, preservative 9 completed SLICK MYNEAR null, [employer] 08/27/2022 17:33:12 Tdap 5 completed SLICK MYNEAR null, [employer] 05/04/2025 16:07:58 Influenza, split virus, quadrivalent, PF 3 completed Marlena Das APRN [address] [place] [address], [address], [employer] 07/21/2024 15:56:56 Past Encounters Encounter ID Performer Location Encounter Start Date Encounter Closed Date Diagnosis/Indication Diagnosis SNOMED-CT Code Diagnosis ICD10 Code Diagnosis IMO Codes Diagnosis Note [id number] Marlena Das APRN [address] [address] 08/27/2022 17:02:17 08/30/2022 11:54:18 Acute upper respiratory infection 77934135 J06.9 Acute sinusitis 01714354 J01.90 Patient likely has an acute bacterial sinusitis. Will treat as below. No signs of preseptal or orbital cellulitis , meningismu s, or neurologic changes concerning for intracrani al process. Instructed family to monitor patient closely and call office for any of these symptoms. Supportive care reviewed: raising HOB, humidifier use, saline nasal spray, rest, encourage PO fluids and monitor hydration status, infection control measures. Recommende d acetaminop hen/ibupro fen PRN pain, fever; reviewed appropriat e doses. Follow-up as below. [id number] [place] [address] 09/28/2022 08:43:21 09/28/2022 09:43:01 Mixed hyperlipidemia 522128256 E78.2 Continue current medication s. Emphasize low-fat d iet, exercise and weight loss. General ex amination of patient 995340887 Z00.00 She is current on her [facility] care exams. Body mass index 30+ - obesity 300414122 Z68.36 [id number] [place] [address] 10/03/2022 13:40:09 10/03/2022 16:58:29 Paroxysmal atrial fibrillation 573435057 I48.0 Increase Cardizem to BID, continue Xarelto. Referral to [facility] to discuss options including ablation. Sleep study referral entered. [id number] Marlena Das [place] [address] 01/22/2023 13:17:59 01/22/2023 14:05:24 Obstructive sleep apnea of adult 0759580758 103 G47.33 Continue CPAP therapy. She sees benefit from the machine and has multiple risk factors including a history of atrial fibrillati on. Tuberculos is screening 152756746 Z11.1 [id number] Marlena Das [place] [address] 02/05/2023 17:17:32 02/05/2023 17:48:58 Essential hypertension 01456093 I10 DASH diet , continue daily BP monitoring . [id number] Marlena Das, PHYSICIAN [place] [address] 04/23/2023 15:46:57 04/23/2023 16:23:10 Obstructive sleep apnea of adult 8755327732 103 G47.33 Continue CPAP therapy. She sees benefit from the machine and has multiple risk factors including a history of atrial fibrillati on, obesity and HTN. [id number] Marlena Das APRN [place] [address] 06/28/2023 10:42:54 06/28/2023 11:28:40 Pain in left foot [id number] 34712 M79.672 RICE, elevate, continue AMANDA hose. Obtain x ray to r/o stress fx of foot. Trial short course lasix for the edema. Dependent edema 91756993 4 R60.0 Low salt diet emphasized . [id number] Pennie Nguyen APRN [place] [address] 09/10/2023 13:50:52 09/11/2023 11:40:46 Streptococcal sore throat 98910879 J02.0 Body mass index 30+ - obesity 784737621 Z68.34 [id number] Pennie Nguyen APRN [place] [address] 2 10/04/2023 09:38:55 10/07/2023 08:22:09 Streptococcal sore throat 34052386 J02.0 Obesity 285482395 E66.9 COVID-19 [id number] U07.1 [id number] [place] [address] 01/20/2024 16:09:37 01/20/2024 16:55:47 Adult health examination 887874153 Z00.00 BSE reviewed and recommende d . Reviewed calcium needs, exercise, and prevention of osteoporos is . Periodic colonoscop y screening recommende d . Reviewed normal menopause and menopausal symptoms . Mammogram recommende d yearly . Paroxysmal atrial fibrillation 509267125 I48.0 Continue CPAP, Cardizem, and Eliquis. Mixed hyperlipidemia 267 291376 E78.2 Continue current statin medication . Emphasize low-fat d iet, exercise and weight loss. Obstructiv e sleep apnea syndrome 10366720 G47.33 Order completed for CPAP supplies. Essential hypertension 13164258 I10 DASH diet , continue daily BP monitoring . Body mass index 30+ - obesity 076609619 Z68.36 [id number] [place] [address] 05/12/2024 15:26:47 05/12/2024 15:42:00 Tuberculosis screening 059335220 Z11.1 [id number] Mandi Lynch [place] [address] 05/14/2024 15:33:58 05/14/2024 17:52:57 Tuberculosis screening 079590025 Z11.1 [id number] [place] [address] 06/02/2024 14:02:17 06/03/2024 12:31:18 Administration of influenza vaccine 52909086 Z23 [id number] Marlena Das [place] [address] 06/29/2024 09:20:54 06/29/2024 10:43:57 Crush injury of left foot 0272314771 [id number] S97.82XA RICE, elevate, use of torres wrap and walking boot for one week explained. [id number] Marlena Das [place] [address] 07/21/2024 15:37:17 07/21/2024 17:03:48 Paroxysmal atrial fibrillation 012175724 I48.0 Continue CPAP, Cardizem, and Eliquis. Obstructiv e sleep apnea syndrome 56056346 G47.33 Essential hypertension 04218106 I10 DASH diet , continue daily BP monitoring . Body mass index 30+ - obesity 262547936 Z68.36 Mixed hyperlipidemia 267 256746 E78.2 Continue current statin medication . Emphasize low-fat d iet, exercise and weight loss. [id number] Marlena Das [place] [address] 02/17/2025 08:01:21 02/17/2025 08:41:37 Essential hypertension 01147044 I10 Add HCTZ. DASH diet , continue daily BP monitoring . Paroxysmal atrial fibrillation 044439902 I48.0 Continue CPAP, Cardizem, and Eliquis. Mixed hyperlipidemia 267 169188 E78.2 Continue current statin medication . Emphasize low-fat d iet, exercise and weight loss. Obstructiv e sleep apnea syndrome 97769264 G47.33 Continue CPAP Diabetes m ellitus screening 488493842 Z13.1 22846 Body mass index 30+ - obesity 038550672 E66.9 [id number] [id number] Marlena Das [place] [address] 03/15/2025 09:43:47 03/15/2025 13:10:00 Pain of elbow region 48880539 M25.522 [id number] Bursitis o f olecranon of left elbow 8507937747 88857 M70.22 [id number] RICE, she cannot take NSAIDS due to AFIB on anticoagul ant [id number] [place] [address] 05/04/2025 15:28:02 05/04/2025 15:55:06 Dog scratch 360264507 W54.8XXA 020688 Cleanse BID with soap and water and aply KELLY and report any s/s of infection. Health Concerns Section Related Observation LastModified by Organization Detai ls LastModified Time None Recorded Concern Status LastModified by Organization Details LastModified Time None Recorded Advance Directives Directive N: Payers Insurance Date Sequence Insurance Name Policy Number Policy Carpenter Covered Member ID Carpenter Member ID Guarantor Name 05/04/2025 1 [place] [id number] Devora Hay [id number] Devora Hay 01/14/2025 SLIDING FEE SCHEDULE - DISCOUNT Devora Hay 08/27/2022 1 *SELF PAY* Devora Hay Notes Date Note Type Note Provider Name and Address Organization Details Recorded Time 06/29/20 24 text/htm l Musculoskeletal PainReported by PatientHPIFor quality, patient reportssharp. For severity, patient reportsinterferes with sleepandinterferes with work/schoolbut reportsno driving impairment. For location, patient reportsleft foot. For duration, patient reportspresent <1 month. 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 For context, patient reportstrauma. For alleviating factors, patient reportschanging positionandcold compress. For aggravating factors, patient reportsmovement/positioning. For associated symptoms, patient reportsno fever,no weak limbs,no tingling,no numbness of the legs/feet, andno incontinence(edema and superficial abrasion to dorsum of left foot). For adls affected, patient reportswalkingandclimbing stairs.Takes Eliquis for AFIBROS as noted in the HPI Marlena Das, KIMMY [address] [place] [address], [id number], [facility] [employer] 06/29/2024 10:14:22 07/21/20 24 text/htm l HyperlipidemiaReported by PatientHPIFor duration, patient reportschronic. For complications, patient reportscardiovascular diseasebut reportsno coronary artery diseaseandno peripheral artery disease. For risk factors, patient reportsobesity. For control, patient reportsat goal. For adherence to treatment plan, patient reportsfollows recommended diet,exercises, andtakes medications as prescribed. Obstructive Sleep Apnea F/UReported by PatientHPIFor context, patient reportshypertensionbut reportsno lack of adequate sleep,no shift work,not currently taking medication to help sleep,no recent weight gain,no recent upper respiratory infection,no recent sick contacts,not worse with environmental exposure,not worse with seasonal allergen exposure, andnormal sleep hours(afib). For quality, patient reportsimproving. For onset/timing, patient reportschronic. For duration, patient reportslong standing. For severity, patient reportsmoderateandseverity of snoring noted by loved ones. For location, patient reportsno enlarged tonsils,no nasal passage blockage,no throat pain,no feeling of tightness in throat,no dryness of mouth, andno chest congestion. For prior treatment, patient reportscpap. For prior opinion, patient reportspcp.Tolerating CPAP well nightly, needs RX for supplies. Has not had episode AFIB since going on CPAP. Hypertension F/UReported by PatientHPIFor medications, patient reportstaking medications as directedandno side effects from medication. For lifestyle, patient reportsregular exerciseandlimits sodium intake. For associated symptoms, patient reportsno dizziness,no lightheadedness,no chest pain,no shortness of breath,no palpitations,no edema,no calf pain with exertion, andno headache. Atrial FibrillationReported by PatientHPIFor context, patient reportsdehydrationandhypertens ion(patricia). For onset/timing, patient reportsintermittent. For alleviating factors, patient reportsmedication(cpap). For associated symptoms, patient reportsno chest discomfort,no dyspnea,no decrease in exercise tolerance,no fatigue,no associated dizziness,no awareness of palpitation,not tachycardic,no weakness,no increased urination, andno angina.Doing well on Eliquis, Cardizem and CPAP. No further AFIB episodes per patient.ROS as noted in the HPI Marlena Das APRN [address] [place], [address], [facility] [employer] 08/09/2024 18:47:22 02/18/20 25 text/htm l HyperlipidemiaReported by PatientHPIFor duration, patient reportschronic. For complications, patient reportscardiovascular diseasebut reportsno coronary artery diseaseandno peripheral artery disease. For risk factors, patient reportsobesity. For control, patient reportsat goal. For adherence to treatment plan, patient reportsfollows recommended diet,exercises, andtakes medications as prescribed. Obstructive Sleep Apnea F/UReported by PatientHPIFor context, patient reportshypertensionbut reportsno lack of adequate sleep,no shift work,not currently taking medication to help sleep,no recent weight gain,no recent upper respiratory infection,no recent sick contacts,not worse with environmental exposure,not worse with seasonal allergen exposure, andnormal sleep hours(afib). For quality, patient reportsimproving. For onset/timing, patient reportschronic. For duration, patient reportslong standing. For severity, patient reportsmoderateandseverity of snoring noted by loved ones. For location, patient reportsno enlarged tonsils,no nasal passage blockage,no throat pain,no feeling of tightness in throat,no dryness of mouth, andno chest congestion. For prior treatment, patient reportscpap. For prior opinion, patient reportspcp.Tolerating CPAP well nightly. Has not had episode AFIB since going on CPAP. Hypertension F/UReported by PatientHPIFor medications, patient reportstaking medications as directedandno side effects from medication. For lifestyle, patient reportsregular exerciseandlimits sodium intake. For associated symptoms, patient reportsno dizziness,no lightheadedness,no chest pain,no shortness of breath,no palpitations,no edema,no calf pain with exertion, andno headache. Atrial FibrillationReported by PatientHPIFor context, patient reportsdehydrationandhypertens ion(patricia). For onset/timing, patient reportsintermittent. For alleviating factors, patient reportsmedication(cpap). For associated symptoms, patient reportsno chest discomfort,no dyspnea,no decrease in exercise tolerance,no fatigue,no associated dizziness,no awareness of palpitation,not tachycardic,no weakness,no increased urination, andno angina.Doing well on Eliquis, Cardizem and CPAP. No further AFIB episodes per patient.ROS as noted in the [facility] Marlena Das APRN [address] [place], [address], [facility] [employer], [facility]. 02/17/2025 16:08:21 03/15/20 25 text/htm l Musculoskeletal PainReported by PatientHPIFor quality, patient reportssharp. For severity, patient reportsworsening,interferes with sleep, andinterferes with work/school. For location, patient reportspain is not radiatingandleft elbow. For duration, patient reportspresent <1 month. For timing, patient reportsgradual. For context, patient reportsoveruse. For alleviating factors, patient reportscold compress. For associated symptoms, patient reportsno fever,no weak limbs,no tingling, andno incontinence.ROS as noted in the [facility] Marlena Das APRN [address] [place], [address], [employer] 03/22/2025 15:21:27 05/04/20 25 text/htm l ROS as noted in the HPI Chief ComplaintDog scratch to right lower leg on Saturday with skin broken, concern about tetanus vaccination statusHistory of Present IllnessDevora Hay is a 60-year-old patient who presents for evaluation of a dog scratch that occurred on Saturday. The patient was scratched by her own vaccinated dog on the right anterior lower leg after accidentally stepping on the animal, causing the dog to snap at her in an instinctive reaction. The scratch broke the skin, prompting her visit due to concerns about tetanus vaccination status, as she has not received a tetanus shot in the past decade. She has been cleaning the wound with peroxide and applying Neosporin (antibacterial ointment). The wound currently shows no signs of infection. Marlena Das APRN [address] [place], [address], [employer] 05/04/2025 17:35:12 OBGyn Episode No OBEpisode recorded.
== END 2025-08-06 23:59 | disposition home or self-care (01) ==
LOC: RAD 12:37
PROVIDERS: PCP Nurse Practitioner Family; Visit Provider Nurse Practitioner Family
DX: Z12.31 Encounter for screening mammogram for malignant neoplasm of breast (principal); R92.323 Mammographic fibroglandular density, bilateral breasts; N63.10 Unspecified lump in the right breast, unspecified quadrant
CPT/HCPCS: 77063; 77067